=== PATIENT | female | born 1935 | race Caucasian/White ===

== ENCOUNTER → 2016-05-22 | Outpatient (CLI) | payer MEDICARE ==
[2016-05-22 08:42] LABS: BASOPHILS % (AUTO) 1 % (0-2); EOSINOPHILS # (AUTO) 0.2 10^3uL; EOSINOPHILS % (AUTO) 3 % (0-4); LYMPHOCYTES # (AUTO) 1.2 X10^3; MEAN CORPUSCULAR HEMOGLOBIN 28.7 PG (26.0-34.0); MEAN CORPUSCULAR HGB CONC 34.5 g/dL (31.0-37.0); MEAN CORPUSCULAR VOLUME 83 FL (80-100); MEAN PLATELET VOLUME 9.4 FL (6.0-9.5); MONOCYTES # (AUTO) 0.5 X10^3; MONOCYTES % (AUTO) 9 % (3-11); NEUTROPHILS # (AUTO) 3.5 X10^3; NEUTROPHILS % (AUTO) 64 % (51-67); PLATELET COUNT 241 10^3uL (150-450); WHITE BLOOD COUNT 5.44 10^3uL (4.0-11.0)
== END ==
LOC: LAB 08:23
PROVIDERS: ATTEND Internal Medicine
DX: D64.89 Other specified anemias (principal); E78.4 Other hyperlipidemia; E11.9 Type 2 diabetes mellitus without complications
CPT/HCPCS: 36415; 80061; 83036; 85025

== ENCOUNTER 2016-07-25 16:59 | Inpatient (IN) | payer MEDICARE ==
[~2016-07-25] VITALS: Ht 162.6 cm; Wt 115.5 kg
[~2016-07-25 16:59] MED LIST changes: -CHOL10002 PO; -CPR500T PO; -CYAN500T44 PO; -MULT-1047 PO; -RANI150T15 PO; -UBID100T7 PO
--- NOTE | 2016-07-25 17:05 | NUR ---
Pt admitted to 303 via w/c accompanied by Jaime Valdez Machine Shorthand Reporter. Skin warm, dry, intact. Resprs nonlabored, even on RA. Pt rates R flank pain 8/10 with activity. See admission database for assessment info.
--- OUTSIDE RECORDS SUMMARY | 2016-07-25 17:05 | XMS REPORT | Continuity of Care Document ---
Author Author [facility] Address Unknown Phone Unavailable Allergies Active Description Code Type Severity Reaction Onset Reported/Identified Relationship to Patient Clinical Status Yes No Known Drug Allergies [id number] Drug Allergy Unknown N/ A 04/14/2013 Yes terazosin [id number] Drug Allergy Mild N/A 05/31/2015 Medications Problems Date Dx Coded Attending Type Code Diagnosis Diagnosed By 06/22/2014 Ot 611.72 06/22/2014 Ot V72.31 06/22/2014 Ot V76.12 06/22/2014 SARITHA SOSA MD Ot 786.09 06/22/2014 SARITHA SOSA MD Ot 780.60 06/22/2014 SARITHA SOSA MD Ot 780.60 06/22/2014 SARITHA SOSA MD Ot 786.09 06/22/2014 SARITHA SOSA MD Ot 719.46 06/22/2014 SARITHA SOSA MD Ot 250.00 06/22/2014 SARITHA SOSA MD Ot 272.4 06/22/2014 SARITHA SOSA MD Ot 401.1 06/22/2014 SARITHA SOSA MD Ot 427.69 06/22/2014 SARITHA SOSA MD Ot 250.00 06/22/2014 Ot 250.00 06/22/2014 Ot 401.9 06/22/2014 Ot 715.96 06/22/2014 SARITHA SOSA MD Ot V49.81 06/22/2014 SARITHA SOSA MD Ot 782.3 06/22/2014 Ot 401.9 06/22/2014 Ot V72.63 06/22/2014 Ot V72.83 06/27/2014 Ot 401.9 06/27/2014 Ot V72.63 06/27/2014 Ot V72.83 06/30/2014 Ot 401.9 06/30/2014 Ot V72.63 06/30/2014 Ot V72.83 07/13/2014 SHEILA THOMPSON, SARITHA D Ot 276.8 07/13/2014 SHEILA THOMPSON, SARITHA D Ot 401.9 08/03/2014 SHEILA THOMPSON, SARITHA D Ot 250.00 08/03/2014 SHEILA THOMPSON, SARITHA D Ot 401.9 08/03/2014 SHEILA THOMPSON, SARITHA D Ot 780.79 08/03/2014 SHEILA THOMPSON, SARITHA D Ot 787.02 08/31/2014 SHEILA THOMPSON, SARITHA D Ot 250.00 08/31/2014 SHEILA THOMPSON, SARITHA D Ot 401.9 08/31/2014 SHEILA THOMPSON, SARITHA D Ot 459.81 08/31/2014 SHEILA THOMPSON, SARITHA D Ot V43.65 10/19/2014 SHEILA THOMPSON, SARITHA D Ot 250.00 10/19/2014 SHEILA THOMPSON, SARITHA D Ot 272.4 10/19/2014 SHEILA THOMPSON, SARITHA D Ot 401.9 10/19/2014 SHEILA THOMPSON, SARITHA D Ot 562.10 10/19/2014 SHEILA THOMPSON, SARITHA D Ot 789.04 10/19/2014 SHEILA THOMPSON, SARITHA D Ot V70.0 11/01/2014 SHEILA THOMPSON, SARITHA D Ot 250.00 11/01/2014 SHEILA THOMPSON, SARITHA D Ot 272.4 11/01/2014 SHEILA THOMPSON, SARITHA D Ot 401.9 11/01/2014 SHEILA THOMPSON, SARITHA D Ot 562.10 11/01/2014 SHEILA THOMPSON, SARITHA D Ot 789.04 11/01/2014 SHEILA THOMPSON, SARITHA D Ot V70.0 03/16/2015 SHEILA THOMPSON, SARITHA D Ot D72.829 03/16/2015 SHEILA THOMPSON, SARITHA D Ot E11.9 03/20/2015 SHEILA THOMPSON, SARITHA D Ot D72.829 03/20/2015 SHEILA THOMPSON, SARITHA D Ot E11.9 05/29/2015 SHEILA THOMPSON, SARITHA Carrillo Ot I10 05/31/2015 KATELYN THOMPSON, TC Cool Ot K57.30 05/31/2015 TC ZEPEDA MD Ot Z12.11 05/31/2015 KATELYN THOMPSON, TC Cool Ot Z80.0 06/27/2015 KATELYN THOMPSON, TC G Ot K57.30 06/27/2015 KATELYN THOMPSON, TC Travon Ot Z12.11 06/27/2015 TC ZEPEDA MD Travon Ot Z80.0 11/14/2015 SARITHA SOSA MD Ot E11.9 TYPE 2 DIABETES MELLITUS WITHOUT COMPLIC 11/14/2015 SARITHA SOSA MD Ot E11.9 TYPE 2 DIABETES MELLITUS WITHOUT COMPLIC 11/17/2015 SARITHA SOSA MD Ot E11.9 TYPE 2 DIABETES MELLITUS WITHOUT COMPLIC 11/17/2015 SARITHA SOSA MD Ot E78.5 HYPERLIPIDEMIA, UNSPECIFIED 11/17/2015 SARITHA SOSA MD Ot I10 ESSENTIAL (PRIMARY) HYPERTENSION 11/17/2015 SARITHA SOSA MD Ot Z00.00 ENCNTR FOR GENERAL ADULT MEDICAL EXAM W 11/21/2015 SARITHA SOSA MD Ot E11.9 TYPE 2 DIABETES MELLITUS WITHOUT COMPLIC 11/21/2015 SARITHA SOSA MD Ot E78.5 HYPERLIPIDEMIA, UNSPECIFIED 11/21/2015 SARITHA SOSA MD Ot I10 ESSENTIAL (PRIMARY) HYPERTENSION 11/21/2015 SARITHA SOSA MD Ot Z00.00 ENCNTR FOR GENERAL ADULT MEDICAL EXAM W 11/28/2015 SARITHA SOSA MD Ot E11.9 TYPE 2 DIABETES MELLITUS WITHOUT COMPLIC 11/28/2015 SARITHA SOSA MD Ot E78.5 HYPERLIPIDEMIA, UNSPECIFIED 11/28/2015 SARITHA SOSA MD Ot I10 ESSENTIAL (PRIMARY) HYPERTENSION 11/28/2015 SARITHA SOSA MD Ot Z00.00 ENCNTR FOR GENERAL ADULT MEDICAL EXAM W 12/11/2015 SARITHA SOSA MD Ot E11.9 TYPE 2 DIABETES MELLITUS WITHOUT COMPLIC 12/11/2015 SARITHA SOSA MD Ot E78.5 HYPERLIPIDEMIA, UNSPECIFIED 12/11/2015 SARITHA SOSA MD Ot I10 ESSENTIAL (PRIMARY) HYPERTENSION 12/11/2015 SARITHA SOSA MD Ot Z00.00 ENCNTR FOR GENERAL ADULT MEDICAL EXAM W 03/21/2016 SARITHA SOSA MD Ot I10 ESSENTIAL (PRIMARY) HYPERTENSION 05/22/2016 SARITHA SOSA MD, Ot D64.89 OTHER SPECIFIED ANEMIAS 05/22/2016 SARITHA SOSA MD, Ot E11.9 TYPE 2 DIABETES MELLITUS WITHOUT COMPLIC 05/22/2016 SARITHA SOSA MD Ot E78.4 OTHER HYPERLIPIDEMIA 05/22/2016 SARITHA SOSA MD, Ot D64.89 OTHER SPECIFIED ANEMIAS 05/22/2016 SARITHA SOSA MD, Ot E11.9 TYPE 2 DIABETES MELLITUS WITHOUT COMPLIC 05/22/2016 SARITHA SOSA MD Ot E78.4 OTHER HYPERLIPIDEMIA 05/22/2016 SARITHA SOSA MD, Ot D64.89 OTHER SPECIFIED ANEMIAS 05/22/2016 SARITHA SOSA MD, Ot E11.9 TYPE 2 DIABETES MELLITUS WITHOUT COMPLIC 05/22/2016 SARITHA SOSA MD, Ot E78.4 OTHER HYPERLIPIDEMIA 05/22/2016 SARITHA SOSA MD, Ot D64.89 OTHER SPECIFIED ANEMIAS 05/22/2016 SARITHA SOSA MD, Ot E11.9 TYPE 2 DIABETES MELLITUS WITHOUT COMPLIC 05/22/2016 SARITHA SOSA MD Ot E78.4 OTHER HYPERLIPIDEMIA 05/27/2016 SARITHA SOSA MD, Ot D64.89 OTHER SPECIFIED ANEMIAS 05/27/2016 SARITHA SOSA MD, Ot E11.9 TYPE 2 DIABETES MELLITUS WITHOUT COMPLIC 05/27/2016 SARITHA SOSA MD Ot E78.4 OTHER HYPERLIPIDEMIA 06/13/2016 SARITHA SOSA MD Ot D64.89 OTHER SPECIFIED ANEMIAS 06/13/2016 SARITHA SOSA MD, Ot E11.9 TYPE 2 DIABETES MELLITUS WITHOUT COMPLIC 06/13/2016 SARITHA SOSA MD Ot E78.4 OTHER HYPERLIPIDEMIA Procedures Results Test Result Range Complete blood count (CBC) with automated white blood cell (WBC) differential - 11/14/15 08:43 Blood automated leukocyte count 5.13 4.0 -11.0 Erythrocytes 4.29 4.00-5.00 12.0-16.0;g/dL 11.7 12.0-15.5 Hematocrit 35.20 35.00-45.00 Automated erythrocyte mean corpuscular volume 82 80-100 Mean corpuscular hemoglobin (MCH) determination 27.3 26.0-34.0 Automated erythrocyte mean corpuscular hemoglobin concentration measurement ( mass/volume) 33.2 31.0-37.0 Erythrocyte distribution width 13.6 11.8 -15.6 Automated blood platelet count 214 150- 450 Automated blood platelet mean volume measurement 9.3 6.0-9.5 Automated neutrophil percentage 63 51- 67 Lymphocytes/100 leukocytes 22 20-46 Automated monocyte percentage 10 3-11 Eosinophil count auto 4 0-4 Automated basophil percentage 1 0-2 Automated blood neutrophil count 3.3 Blood lymphocytes count (number/volume) 1.1 Automated blood monocyte count 0.5 Blood absolute eosinophil count 0.2 Basophils 0.0 HEMOGLOBIN A1C* - 11/14/15 08:43 HEMOGLOBIN A1C* 7.3 4.0-6.0 Comprehensive metabolic panel - 11/14/15 08:43 Sodium measurement 159 70-110 Carbon dioxide measurement 31 22-29 Serum or plasma anion gap 14.9 3-15 BLOOD UREA NITROGEN 17 7-18 CREATININE SERUM 0.86 0.6-1.2 Brucella species antibody panel (IgG, IgM) 20 10-20 Estimated glomerular filtration rate (GFR) 77.0 Estimated glomerular filtration rate (GFR) non- 63.7 OSMOLALITY,CALCULATED 276 280-300 CALCIUM 9.7 8.8-10.8 Calculated ionized calcium measurement 4.6 3.8-4.6 BILIRUBIN,TOTAL 0.5 0.1-1.0 Serum or plasma alkaline phosphatase measurement 88 38-126 ASPARTATE AMINO TRANSFERASE 26 15-37 ALANINE AMINOTRANSFERASE 43 30-65 Serum or plasma total protein measurement 6.2 6.4-8.5 Serum or plasma albumin measurement 3.9 3.4-5.0 Serum or plasma albumin/globulin mass ratio 1.695 1.1-1.8 General health panel - 11/14/15 08:43 Total cell count 2.18 0.46-4.68 LIPID PANEL - 11/14/15 08:43 Cholesterol 154 50-200 HDL Cholesterol 49 40-60 Triglycerides 176 10-150 LDL CHOLESTEROL 70 50-130 VLDL Cholesterol, calc 35 4.00-40.00 Cholesterol.total/Cholesterol.in HDL 3.1 0.0-5.0 Urine microalbumin measurement by detection limit <=20 mg/l (mass/volume) - 08:43 Urine microalbumin measurement by detection limit <=20 mg/l (mass/volume) < 0.0-1.7 Complete blood count (CBC) with automated white blood cell (WBC) differential - 05/22/16 08:30 Blood automated leukocyte count 5.44 4.0 -11.0 Erythrocytes 4.36 4.00-5.00 12.0-16.0;g/dL 12.5 12.0-15.5 Hematocrit 36.20 35.00-45.00 Automated erythrocyte mean corpuscular volume 83 80-100 Mean corpuscular hemoglobin (MCH) determination 28.7 26.0-34.0 Automated erythrocyte mean corpuscular hemoglobin concentration measurement ( mass/volume) 34.5 31.0-37.0 Erythrocyte distribution width 13.0 11.8 -15.6 Automated blood platelet count 241 150- 450 Automated blood platelet mean volume measurement 9.4 6.0-9.5 Automated neutrophil percentage 64 51- 67 Lymphocytes/100 leukocytes 23 20-46 Automated monocyte percentage 9 3-11 Eosinophil count auto 3 0-4 Automated basophil percentage 1 0-2 Automated blood neutrophil count 3.5 Blood lymphocytes count (number/volume) 1.2 Automated blood monocyte count 0.5 Blood absolute eosinophil count 0.2 Basophils 0.0 LIPID PANEL - 05/22/16 08:30 Cholesterol 146 50-200 HDL Cholesterol 42 40-60 Triglycerides 168 10-150 LDL CHOLESTEROL 70 50-130 VLDL Cholesterol, calc 34 4.00-40.00 Cholesterol.total/Cholesterol.in HDL 3.5 0.0-5.0 HEMOGLOBIN A1C* - 05/22/16 08:30 HEMOGLOBIN A1C* 7.9 4.0-6.0 HEMOGLOBIN A1C* - 07/25/16 12:20 HEMOGLOBIN A1C* 7.9 4.0-6.0 Comprehensive metabolic panel - 07/25/16 12:20 Sodium measurement 171 70-110 CARBON DIOXIDE 26 22-29 Serum or plasma anion gap 16.5 3-15 BLOOD UREA NITROGEN 25 7-18 CREATININE SERUM 1.30 0.6-1.2 Brucella species antibody panel (IgG, IgM) 19 10-20 Estimated glomerular filtration rate (GFR) 47.8 Estimated glomerular filtration rate (GFR) non- 39.5 OSMOLALITY,CALCULATED 270 280-300 CALCIUM 9.6 8.8-10.8 Calculated ionized calcium measurement 4.5 3.8-4.6 BILIRUBIN,TOTAL 0.5 0.1-1.0 Serum or plasma alkaline phosphatase measurement 104 38-126 ASPARTATE AMINO TRANSFERASE 19 15-37 ALANINE AMINOTRANSFERASE 40 30-65 Serum or plasma total protein measurement 6.5 6.4-8.5 Serum or plasma albumin measurement 3.7 3.4-5.0 Serum or plasma albumin/globulin mass ratio 1.321 1.1-1.8 General health panel - 07/25/16 12:20 Total cell count 1.55 0.46-4.68 C REACTIVE PROTEIN* - 07/25/16 12:20 C REACTIVE PROTEIN* 6.10 0.0-0.9 LIPID PANEL - 07/25/16 12:20 Cholesterol 147 50-200 HDL Cholesterol 50 40-60 Triglycerides 166 10-150 LDL CHOLESTEROL 64 50-130 VLDL Cholesterol, calc 33 4.00-40.00 Cholesterol.total/Cholesterol.in HDL 2.9 0.0-5.0 Complete blood count (CBC) with automated white blood cell (WBC) differential - 07/25/16 12:20 Blood automated leukocyte count 9.43 4.0 -11.0 Erythrocytes 4.39 4.00-5.00 12.0-16.0;g/dL 12.3 12.0-15.5 Hematocrit 36.50 35.00-45.00 Automated erythrocyte mean corpuscular volume 83 80-100 Mean corpuscular hemoglobin (MCH) determination 28.0 26.0-34.0 Automated erythrocyte mean corpuscular hemoglobin concentration measurement ( mass/volume) 33.7 31.0-37.0 Erythrocyte distribution width 13.2 11.8 -15.6 Automated blood platelet count 232 150- 450 Automated blood platelet mean volume measurement 9.6 6.0-9.5 Automated neutrophil percentage 78 51- 67 Lymphocytes/100 leukocytes 12 20-46 Automated monocyte percentage 9 3-11 Eosinophil count auto 1 0-4 Automated basophil percentage 0 0-2 Automated blood neutrophil count 7.3 Blood lymphocytes count (number/volume) 1.2 Automated blood monocyte count 0.8 Blood absolute eosinophil count 0.1 Basophils 0.0 Erythrocyte sedimentation rate - 07/25/16 12:20 Erythrocyte sedimentation rate 34 0-23 UA CULTURE IF INDICATED* - 07/25/16 12:30 COLLECTION METHOD CLEAN CATCH Color of urine by auto Yellow Urine appearance determination Slightly Cloudy Urine pH measurement by automated test strip 5.5 5.0 - 8.0 Specific gravity of urine by automated test strip 1.010 1.005-1.030 Urine protein measurement by test strip (mass/volume) Trace Negative Urine glucose detection by automated test strip Negative Negative Urine erythrocytes count by automated test strip (number/volume) 1+ Negative Urine ketones detection by automated test strip Negative Negative Urine nitrite detection by test strip Negative Negative Urine total bilirubin detection by automated test strip Negative Negative Urine urobilinogen measurement by automated test strip (mass/volume) 0.2 0.2-1.0 Urine leukocyte esterase detection by dipstick 3+ Negative Microscopic examination of urine - 07/25/16 12:30 Urine volume measurement 12 mL Urine erythrocytes detection by automated method 5-10 Automated urine sediment leukocyte count by microscopy (number/high power field ) > Bacteria 1+ SQUAMOUS EPITHELIAL CELL,UR 5-10 Encounters ACCT No. Visit Date/Time Discharge Status Pt. Type Provider Facility Loc./Unit Complaint [id number] 05/31/2015 08:02:00 2015 13:25:00 DIS Outpatient KATELYN THOMPSON, [facility] [id number] 02/22/2015 16:46:00 2014 23:59:59 CLS Outpatient SHEILA THOMPSON [facility] LAB [id number] 10/09/2014 08:44:00 2014 23:59:59 CLS Outpatient SHEILA THOMPSON [facility] LAB [id number] 08/09/2014 09:07:00 2014 23:59:59 CLS Outpatient SHEILA THOMPSON [facility] LAB [id number] 07/08/2014 11:35:00 2014 23:59:59 CLS Outpatient SHEILA THOMPSON [facility] LAB [id number] 06/22/2014 09:05:00 2014 23:59:59 CLS Outpatient SHEILA THOMPSON [facility] LAB [id number] 05/13/2014 08:01:00 2014 23:59:59 CLS Outpatient SHEILA THOMPSON, [facility] LAB [id number] 05/13/2014 07:59:00 2014 23:59:59 CLS Outpatient Bhaskar THOMPSON, [facility] RAD [id number] 02/02/2014 08:06:00 2013 23:59:59 CLS Outpatient SHEILA THOMPSON, [facility] RAD [id number] 09/09/2013 13:09:00 2013 23:59:59 CLS Outpatient SHEILA THOMPSON, [facility] LAB [id number] 09/06/2013 08:05:00 2013 23:59:59 CLS Outpatient SHEILA THOMPSON, [facility] LAB [id number] 06/25/2013 09:49:00 2013 23:59:59 CLS Outpatient [id number] 04/14/2013 12:44:00 2013 23:59:59 CLS Outpatient SHEILA THOMPSON, [facility] [id number] 02/23/2013 08:53:00 2012 23:59:59 CLS Outpatient SHEILA THOMPSON, [facility] [id number] 01/13/2013 15:32:00 2012 23:59:59 CLS Outpatient SHEILA THOMPSON, [facility] LAB [id number] 01/07/2013 12:57:00 2012 23:59:59 CLS Outpatient SHEILA THOMPSON, [facility] LAB [id number] 01/05/2013 14:30:00 2012 23:59:59 CLS Outpatient SHEILA THOMPSON, [facility] RAD [id number] 07/25/2016 13:18:00 Document Registration [id number] 05/22/2016 08:23:00 ACT Outpatient SHEILA THOMPSON, [facility] LAB [id number] 11/14/2015 08:35:00 ACT Outpatient SHEILA THOMPSON, [facility] LAB [id number] 05/07/2015 07:50:00 ACT Outpatient SHEILA THOMPSON, [facility] [id number] 06/22/2014 09:00:00 Document Registration [id number] 06/03/2014 10:33:00 Document Registration [id number] 12/14/2013 09:25:00 Document Registration [id number] 05/27/2012 14:03:00 Document Registration [id number] 10/09/2011 08:34:00 Document Registration
[2016-07-25 17:41] VITALS: BP 176/75
[2016-07-25] MEDS ORDERED: DEXTROSE 50% 25 GM/50 ML SYRINGE IV PRN (17:55)
[2016-07-25] MEDS ORDERED: DEXTROSE ORAL GEL (GLUTOSE 40%) 15 GM TUBE PO PRN (17:55)
[2016-07-25] MEDS ORDERED: MAG HYDROX/AL HYDROX/SIMETH 200-200-20/5 ML (MAG-AL PLUS) 30 ML UDC PO PRN (17:55)
[2016-07-25] MEDS ORDERED: DOCUSATE SODIUM 100 MG (COLACE) CAP PO PRN (17:55)
[2016-07-25] MEDS ORDERED: PROMETHAZINE HCL INJ 12.5 MG in SODIUM CHLORIDE 25 ML IV PRN (17:55)
[2016-07-25] MEDS ORDERED: GLUCAGON EMERGENCY 1 MG/KIT IM PRN (17:55)
[2016-07-25] MEDS ORDERED: ONDANSETRON 4 MG (ZOFRAN) ORAL DISSOLVE TAB PO PRN (17:55)
[2016-07-25] MEDS ORDERED: POLYETHYLENE GLYCOL 17 GM (MIRALAX) PACKET PO PRN (17:55)
[2016-07-25] MEDS ORDERED: CALCIUM CARBONATE CHEWABLE 300 MG (TUMS) TABLET PO PRN (17:55)
[2016-07-25] MEDS ORDERED: MAGNESIUM HYDROXIDE 80MG/ML (MILK OF MAGNESIA) 30 ML UDC PO PRN (17:55)
[2016-07-25] MEDS ORDERED: CYCLOBENZAPRINE 10 MG (FLEXERIL) TAB PO PRN (17:55)
[2016-07-25] MEDS ORDERED: CYAN500T44 PO (18:03)
[2016-07-25] MEDS ORDERED: RANI150T15 PO (18:03)
[2016-07-25] MEDS ORDERED: CHOL10002 PO (18:03)
[2016-07-25] MEDS ORDERED: METF1000 PO (18:03)
[2016-07-25] MEDS ORDERED: MULT-1047 PO (18:03)
[2016-07-25] MEDS ORDERED: UBID100T7 PO (18:03)
--- NOTE | 2016-07-25 18:04 | NUR ---
Medication history completed; interview by Isabel chapman and medications/doses updated in EMR
[2016-07-25] MEDS ORDERED: NS FLUSH 3 ML PRN IV (18:10)
[2016-07-25 18:35] VITALS: BP 176/75
--- NOTE | 2016-07-25 18:45 | NUR ---
20g in LFA started by Kimberly Carrillo RN. Pt reports it carlson, but it does not appear red or edematous upon flushing. Pt states "that's fine, we'll try it!". Jocelyne melendez. Pt reports feeling chilled, requests to have temperature taken orally. Pt refuses dinner tray. Call light within reach. Denies other needs.
[2016-07-25] MEDS: cefTRIAXone SODIUM 1,000 MG in SODIUM CHLORIDE 50 ML IV SCH (18:57)
--- NOTE | 2016-07-25 19:04 | Diagnostic Imaging Report ---
INDICATION: Sepsis. Comparison with 06/03/2014. FINDINGS: The lungs are well-aerated with no infiltrates. The heart is not enlarged. No hilar adenopathy. No pneumothorax or pleural effusions. IMPRESSION: Normal PA and lateral chest. Dictated by: Dictated on workstation # [id number]
--- NOTE | 2016-07-25 19:35 | NUR ---
Pts temp is 102.3, gave Tylenol 325mg 2 tabs PO for temp.
--- NOTE | 2016-07-25 20:10 | History and Physical (E) ---
History & Physical PCP: Rosendo Vora MD CC: Right flank pain, worse x 5 days. HPI Lisa Ramos is a 80 year old female admitted from home 07/25 for concern of pyelonephritis. She had been having right sided flank pain x 5 days, getting progressively worse. Has back pain chronically but this felt different. Seen in PCP's office today and had CVA tenderness. Reported to PCP that she has been chilling at home at times but no fever reported. In office, UA showed pyuria, bacteria, LE. CRP 6.1. WBC was normal. PCP called patient and instructed her to come to hospital for admission. She drove herself here form home. On arrival, somewhat tired but pleasant, interactive, able to answer questions. Relays history as above. As she is a nurse, she worries of course about feeling septic. No nausea or vomiting but is tired. Feels dehydrated. Having some flank pain that improved with morphine. PMH * Chronic low back pain * Diverticulosis * Diabetes Mellitus Type II * JIN * Dysthymia * Mitral valve prolapse * Hearing loss, left ear * Hemianopia * HLD * Laryngopharyngitis * Lumbar spinal stensois * Obesity * SONAM on CPAP * OA * Ptosis * Venous stasis PSH * Colonoscopy * Right total knee 2015 * Bilateral blepharoplsty * Bilateral cataract * Laparoscopic cholecystectomy * Bilateral shoulder surgery * Vaginal hysterectomy * Appendectomy * Back surgery x 3. * Sinus and nasal surgery ALLERGIES: Please see list at end of report. HOME MEDICATIONS: Please see list at end of report. FH Father had CAD. Mother had cancer. Father also had DM. SH Lives independently in her own home in [place]. 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 No alcohol, tobacco, or drug use. ROS CONSTITUTION: Weigt stable, Has felt chilled. HEENT: No change in vision or hearing. CV: No chest pain PULM: No cough, shortness of breath, difficulty breathing. GI: Flank pain. No nausea or vomiting. : No dysuria. MS: No new muscle or joint aches and pains. NEURO: Generalized but no focal weakness. INTEG: No rashes, lesions, or sores. OBJECTIVE Vital Signs Date Time Temp Pulse Resp B/P Pulse Ox O2 Delivery O2 Flow Rate FiO2 07/25/16 18:35 97.9 101 18 176/75 94 Room air 101 GEN: Tired appearing. Oriented. HEENT: EOMI, clear sclerae, somewhat dry oral mucosa. CV: RRR S1 S2 normal with no murmur LUNGS: CTA B with diminished bases. No R/R/W. ABD: Soft, NT/ND with normal bowel sounds. EXTR: BLE edema. INTEG: No rash. Warm, dry, well-perfused. Not diaphoretic. NEURO: No focal motor neuro deficit. Psychomotor slowing. Weight: 117.6 kg Laboratory Results-14 Days 07/25/16 12:20: Alanine Aminotransferase (ALT/SGPT) 40, Albumin 3.7, Albumin/Globulin Ratio 1.321, Alkaline Phosphatase 104, Anion Gap 16.5H, Aspartate Amino Transf (AST/ SGOT) 19, BUN/Creatinine Ratio 19, Basophils # (Auto) 0.0, Basophils (%) (Auto) 0, Blood Urea Nitrogen 25H, C-Reactive Protein 6.10H, Calcium Level 9.6, Calcium /Ionized Calcium Ratio 4.5, Calculated Osmolality 270L, Carbon Dioxide Level 26 , Chloride Level 97L, Cholesterol Level 147, Cholesterol/HDL Ratio 2.9, Creatinine 1.30#H, Eosinophils # (Auto) 0.1, Eosinophils (%) (Auto) 1, Erythrocyte Sedimentation Rate 34H, Estimat Glomerular Filtration Rate 47.8, Estimated GFR (Non- 39.5, Glucose Level 171H, HDL Cholesterol 50 , Hematocrit 36.50, Hemoglobin 12.3, Hemoglobin A1c 7.9H, LDL Cholesterol, Calculated 64, Lymphocytes # (Auto) 1.2, Lymphocytes (%) (Auto) 12L, Mean Corpuscular Hemoglobin 28.0, Mean Corpuscular Hemoglobin Concent 33.7, Mean Corpuscular Volume 83, Mean Platelet Volume 9.6H, Monocytes # (Auto) 0.8, Monocytes (%) (Auto) 9, Neutrophils # (Auto) 7.3, Neutrophils (%) (Auto) 78H, Platelet Count 232, Potassium Level 4.1, Red Blood Count 4.39, Red Cell Distribution Width 13.2, Sodium Level 135, Thyroid Stimulating Hormone (TSH) 1.55, Total Bilirubin 0.5, Total Protein 6.5, Triglycerides Level 166H, VLDL Cholesterol, Calculated 33, White Blood Count 9.43 07/25/16 12:30: Urine Bacteria 1+, Urine Bilirubin Negative, Urine Blood 1+H, Urine Clarity Slightly cloudy, Urine Collection Type Clean catch, Urine Color Yellow, Urine Glucose (UA) Negative, Urine Ketones Negative, Urine Leukocyte Esterase 3+H, Urine Microscopic RBC 5-10H, Urine Nitrite Negative, Urine Protein TraceH, Urine Random Microalbumin 6.6H, Urine Specific Mandan 1.010, Urine Squamous Epithelial Cells 5-10, Urine Urobilinogen 0.2, Urine WBC >100H, Urine pH 5.5, Volume Urine Centrifuged 12 ml MICRO 07/25 Blood culture PENDING 07/25 Urine culture PENDING IMAGING 07/25/16 CHEST PA/LAT (2 VIEW)* INDICATION: Sepsis. Comparison with 06/03/2014. FINDINGS: The lungs are well-aerated with no infiltrates. The heart is not enlarged. No hilar adenopathy. No pneumothorax or pleural effusions. IMPRESSION: Normal PA and lateral chest. ASSESSMENT Lisa Ramos is a 80 year old female admitted from home 07/25 after being seen in clinic earlier in the day with malaise, flank pain. Office labs and clinical presentation were consistent with pyelonephritis. She appeared ill on admit though did not meet SIRS/sepsis criteria. PLAN * Pyelonephritis: Urine and blood cultures pending. Ceftriaxone. * Flank Pain: Acetaminophen, morphine. * Dehydration: NS bolus. 1 L maintenance. * Nausea: Ondansetron, promethazine. * F/E/N: Diabetic diet. IVF as above. Peripheral IV. * Prophylaxis: Enoxaparin * Code Status: DNR. Patient requested this on admit. * Dispo: Observation pending utilization review. Likely to need 2-3 day stay. CHRONIC ISSUES * HTN: Losartan, chlorthalidone * Diabetes Mellitus Type II: Metformin, sliding scale. * GERD: Pantoprazole * HLD: Simvastatin * OA: Acetaminophen * Constipation: Bowel regimen Allergies/Home Medications Allergies: Coded Allergies: terazosin (Verified Allergy, Mild, 05/31/15) leg cramping Reported Home Medications Scheduled Aspirin (Aspirin) 81 MG PO DAILY (Reported) Chlorthalidone (Chlorthalidone) 25 MG PO DAILY (Reported) Cholecalciferol (Vitamin D3) (Vitamin D3) 1,000 UNIT PO DAILY (Reported) Cyanocobalamin (Vitamin B-12) (B-12) 500 MCG PO DAILY (Reported) Losartan Potassium (Losartan Potassium) 100 MG PO DAILY (Reported) Metformin HCl (Metformin HCl) 500 MG PO BID (Reported) Multivit-Min/Iron Fum/Folic AC (Fbghv-Dwkrvby-Pkgmspaw Tablet) 1 EACH PO DAILY ( Reported) Pantoprazole Sodium (Pantoprazole Sodium) 40 MG PO DAILY (Reported) Ranitidine HCl (Zantac) 150 MG PO DAILY (Reported) Simvastatin (Simvastatin) 80 MG PO DAILY (Reported) Ubidecarenone (Coenzyme Q10) 100 MG PO DAILY (Reported) Discontinued Medications Betamethasone Valerate (Betamethasone Valerate 0.1% Cream) 15 GM TOP BID ( Reported) Discontinued Reason: No longer required Metformin HCl (Metformin HCl) 2,000 MG PO BID (Reported) Discontinued Reason: Dose changed Copies to: End of Report . TONG UNGER MD Jul 25, 2016 20:10
[2016-07-25] MEDS: morphine INJ 4 MG/ML 1 ML SYRINGE IV PRN (20:21)
[2016-07-25] MEDS: ACETAMINOPHEN 325 MG TAB (TYLENOL) PO PRN (20:21)
--- NOTE | 2016-07-25 20:21 | NUR ---
Pt complains of pain to right flank, rates 8/10 gave Morphine 4mg SIVP for discomfort. Rechecked temp, 100.1 at this time. Will continue to monitor.
[2016-07-25 20:28] VITALS: BP 160/73
[2016-07-25] MEDS ORDERED: metFORMIN 1000 MG (GLUCOPHAGE) TABLET PO ONE (21:18)
[2016-07-26 00:10] VITALS: BP 115/41
[2016-07-26] MEDS: morphine INJ 4 MG/ML 1 ML SYRINGE IV PRN ×3 (03:51→23:37)
--- NOTE | 2016-07-26 03:51 | NUR ---
Pt is up to restroom, reports having pain to right flank again, rates 8/10, gave Morphine 4mg SIVP for discomfort. Will continue to monitor.
[2016-07-26 04:22] VITALS: BP 144/53
[2016-07-26 06:11] LABS: BASOPHILS % (AUTO) 0 % (0-2); EOSINOPHILS % (AUTO) 0 % (0-4); LYMPHOCYTES # (AUTO) 0.8 X10^3; MEAN CORPUSCULAR HEMOGLOBIN 27.8 PG (26.0-34.0); MEAN CORPUSCULAR HGB CONC 33.5 g/dL (31.0-37.0); MEAN CORPUSCULAR VOLUME 83 FL (80-100); MEAN PLATELET VOLUME 9.6 FL (6.0-9.5); MONOCYTES # (AUTO) 1.1 X10^3; MONOCYTES % (AUTO) 10 % (3-11); NEUTROPHILS # (AUTO) 9.2 X10^3; NEUTROPHILS % (AUTO) 82 % (51-67); PLATELET COUNT 195 10^3uL (150-450); WHITE BLOOD COUNT 11.25 10^3uL (4.0-11.0)
[2016-07-26] MEDS: PANTOPRAZOLE 40 MG (PROTONIX) TAB PO SCH (06:20)
[2016-07-26 06:21] LABS: ALBUMIN 3.4 g/dL (3.4-5.0); ANION GAP 12.3 MEQ/L (3-15)
--- NOTE | 2016-07-26 07:59 | NUR ---
Pt ambulates to bathroom without difficulty- has an altered gait, but this is her baseline. She requests to sit on edge of bed for breakfast. Rates Right flank pain 3/10- denies need for pain at this time. Temp is 99.3 this AM- will give Tylenol with her morning meds at her request. IVF infusing- will SL after current bag per orders. Call light within reach, calls appropriately. WIll cont to monitor
[2016-07-26 08:19] VITALS: BP 134/58
[2016-07-26] MEDS: COENZYME Q10 100 MG CAPSULE PO SCH (08:31)
[2016-07-26] MEDS: CHLORTHALIDONE 50 MG PO SCH (08:33)
[2016-07-26] MEDS: ACETAMINOPHEN 325 MG TAB (TYLENOL) PO PRN ×2 (08:33→23:41)
[2016-07-26] MEDS: CHOLECALCIFEROL 1000 INT UNITS (VITAMIN D3) TABLET PO SCH (08:33)
[2016-07-26] MEDS: metFORMIN 500 MG (GLUCOPHAGE) TABLET PO SCH ×2 (08:34→17:43)
[2016-07-26] MEDS: MULTIVITAMIN W/MINERALS (THERAGRAN M) TABLET PO SCH (08:34)
[2016-07-26] MEDS: LOSARTAN 100 MG (COZAAR) TABLET PO SCH (08:34)
[2016-07-26] MEDS: ASPIRIN 81 MG CHEW (LOW-DOSE) PO SCH (08:34)
[2016-07-26] MEDS: CYANOCOBALAMIN 1000 MCG (VITAMIN B-12) TABLET PO SCH (08:34)
--- NOTE | 2016-07-26 08:35 | NUR ---
NUTRITION ASSESSMENT Level 1 Patient: Lisa Ramos Age/Sex: 80/F Date Screened: 07-26-16 Weight: 257.1#/116.9 kg Height: 64 inches Primary Diagnosis: pyelonephritis Diet Order: medium diabetic Relevant labs: glucose 148 Food allergies: N Nutrition Assessment Criteria Age over 80: N Body Mass Index (BMI) under 19: N Admission Screening Indicates Risk? N Moderate/High Risk Diagnosis: 3 points TPN or PPN: N NPO or clear liquid diet: N Serum Glucose <70 or >180: N Hgb A1c >6.7: N/A Total: 3 points Risk Screen: __ Patient at low nutritional risk based on available data; reevaluate in 5-7 days _X_ Patient at moderate nutritional risk based on available data; reevaluate in 3-5 days __ Patient at high nutritional risk; complete Nutrition Assessment within 48 hours of admission. Comments: No weight loss (last documented weight 246# one year ago); c/o some nausea associated with pyelonephritis. Medium diabetic diet is appropriate; will reassess as documented above.
[2016-07-26] MEDS: NS FLUSH 3 ML DAILY IV SCH (09:00)
--- NOTE | 2016-07-26 09:05 | NUR ---
SL at this time- Went to shower. Tylenol 650mg PO given at 0830 for temp
--- NOTE | 2016-07-26 10:25 | Progress Note (E) ---
Progress Note SUBJECTIVE Tmax since admit 102.9. Fever improving with acetaminophen. Urine growing > 100, 000 cfu/ml gram negative bacilli. On exam, she reports feeling a bit weak yet but somewhat better since admit. Daughter present. Updated both on findings, plan of care. OBJECTIVE Vital Signs Date Time Temp Pulse Resp B/P Pulse Ox O2 Delivery O2 Flow Rate FiO2 07/26/16 08:19 99.3 85 18 134/58 93 07/26/16 04:22 Room air I & O 07/25/16 07/26/16 Cumulative From/Thru 19:00 07:00 07/25/16 17:19 - 07/26/16 06:04 Intake Total 2404 ml 2404 ml Output Total 2600 ml 2600 ml Balance -196 ml -196 ml GEN: Tired appearing. More alert. HEENT: EOMI, clear sclerae, somewhat dry oral mucosa. CV: RRR S1 S2 normal with no murmur LUNGS: CTA B with diminished bases. No R/R/W. ABD: Soft, NT/ND with normal bowel sounds. EXTR: BLE edema. INTEG: No rash. Warm, dry, well-perfused. Not diaphoretic. NEURO: No focal motor neuro deficit. Psychomotor slowing. Lab-Past 14 Days, 35 Results 07/25/16 18:12: Acinetobacter baumannii (PCR) Negative, Antimicrobial Susceptibility , Edna albicans (PCR) Negative, Edna glabrata (PCR) Negative, Edna krusei (PCR) Negative, Edna parapsilosis (PCR) Negative, Edna tropicalis ( PCR) Negative, Enterobacter cloacae complex (PCR) Negative, Enterobacteriaceae species (PCR) Positive*A, Enterococcus species (PCR) Negative, Escherichia coli (PCR) Positive*A, Group B Streptococcus (PCR) Negative, Haemophilis influenzae ( PCR) Negative, KPC-Carbapenem Resistance Gene Negative, Klebsiella oxytoca (PCR ) Negative, Klebsiella pneumoniae (PCR) Negative, Listeria monocytogenes (PCR) Negative, Neisseria meningitidis (PCR) Negative, Proteus species (PCR) Negative , Pseudomonas aeruginosa (PCR) Negative, Serratia marcescens (PCR) Negative, Staphylococcus aureus (PCR)(LAB) Negative, Staphylococcus species (PCR) Negative , Streptococcus pneumoniae (PCR) Negative, Streptococcus pyogenes (TEM-PCR) Negative, Streptococcus species (PCR) Negative, Yury/B-Vancomycin Resistance Genes , mecA-Methicillin Resistance Gene 07/26/16 05:45: Albumin 3.4, Anion Gap 12.3, Basophils # (Auto) 0.0, Basophils (%) (Auto) 0, Blood Urea Nitrogen 20H, Calcium Level 8.9, Carbon Dioxide Level 28, Chloride Level 101, Creatinine 1.06, Eosinophils # (Auto) 0.0, Eosinophils (%) (Auto) 0, Estimat Glomerular Filtration Rate 60.5, Estimated GFR (Non- 50.0, Glucose Level 148H, Hematocrit 34.90L, Hemoglobin 11.7L, Lymphocytes # ( Auto) 0.8, Lymphocytes (%) (Auto) 8L, Mean Corpuscular Hemoglobin 27.8, Mean Corpuscular Hemoglobin Concent 33.5, Mean Corpuscular Volume 83, Mean Platelet Volume 9.6H, Monocytes # (Auto) 1.1, Monocytes (%) (Auto) 10, Neutrophils # ( Auto) 9.2, Neutrophils (%) (Auto) 82H, Phosphorus Level 3.8, Platelet Count 195 , Potassium Level 3.9, Red Blood Count 4.21, Red Cell Distribution Width 13.4, Sodium Level 137, White Blood Count 11.25H Weight: 117.6 kg Laboratory Results-14 Days 07/25/16 12:20: Alanine Aminotransferase (ALT/SGPT) 40, Albumin 3.7, Albumin/Globulin Ratio 1.321, Alkaline Phosphatase 104, Anion Gap 16.5H, Aspartate Amino Transf (AST/ SGOT) 19, BUN/Creatinine Ratio 19, Basophils # (Auto) 0.0, Basophils (%) (Auto) 0, Blood Urea Nitrogen 25H, C-Reactive Protein 6.10H, Calcium Level 9.6, Calcium /Ionized Calcium Ratio 4.5, Calculated Osmolality 270L, Carbon Dioxide Level 26 , Chloride Level 97L, Cholesterol Level 147, Cholesterol/HDL Ratio 2.9, Creatinine 1.30#H, Eosinophils # (Auto) 0.1, Eosinophils (%) (Auto) 1, Erythrocyte Sedimentation Rate 34H, Estimat Glomerular Filtration Rate 47.8, Estimated GFR (Non- 39.5, Glucose Level 171H, HDL Cholesterol 50 , Hematocrit 36.50, Hemoglobin 12.3, Hemoglobin A1c 7.9H, LDL Cholesterol, Calculated 64, Lymphocytes # (Auto) 1.2, Lymphocytes (%) (Auto) 12L, Mean Corpuscular Hemoglobin 28.0, Mean Corpuscular Hemoglobin Concent 33.7, Mean Corpuscular Volume 83, Mean Platelet Volume 9.6H, Monocytes # (Auto) 0.8, Monocytes (%) (Auto) 9, Neutrophils # (Auto) 7.3, Neutrophils (%) (Auto) 78H, Platelet Count 232, Potassium Level 4.1, Red Blood Count 4.39, Red Cell Distribution Width 13.2, Sodium Level 135, Thyroid Stimulating Hormone (TSH) 1.55, Total Bilirubin 0.5, Total Protein 6.5, Triglycerides Level 166H, VLDL Cholesterol, Calculated 33, White Blood Count 9.43 07/25/16 12:30: Urine Bacteria 1+, Urine Bilirubin Negative, Urine Blood 1+H, Urine Clarity Slightly cloudy, Urine Collection Type Clean catch, Urine Color Yellow, Urine Glucose (UA) Negative, Urine Ketones Negative, Urine Leukocyte Esterase 3+H, Urine Microscopic RBC 5-10H, Urine Nitrite Negative, Urine Protein TraceH, Urine Random Microalbumin 6.6H, Urine Specific [place] 1.010, Urine Squamous Epithelial Cells 5-10, Urine Urobilinogen 0.2, Urine WBC >100H, Urine pH 5.5, Volume Urine Centrifuged 12 ml MICRO 07/25 Blood culture PENDING 07/25 Urine culture >100,000 cfu/ml gram negative bacilli. IMAGING 07/25/16 CHEST PA/LAT (2 VIEW)* INDICATION: Sepsis. Comparison with 06/03/2014. FINDINGS: The lungs are well-aerated with no infiltrates. The heart is not enlarged. No hilar adenopathy. No pneumothorax or pleural effusions. IMPRESSION: Normal PA and lateral chest. ASSESSMENT Lisa Ramos is a 80 year old female admitted from home 07/25 after being seen in clinic earlier in the day with malaise, flank pain. Office labs and clinical presentation were consistent with pyelonephritis. She had fever and tachycardia , meeting SIRS/sepsis criteria. PLAN * SIRS/sepsis: Due to pyelonephritis. * Pyelonephritis: Urine and blood cultures pending. Ceftriaxone. * Flank Pain: Acetaminophen, morphine. * Dehydration: NS bolus. 1 L maintenance. * Nausea: Ondansetron, promethazine. * F/E/N: Diabetic diet. IVF as above. Peripheral IV. * Prophylaxis: Enoxaparin * Code Status: DNR. Patient requested this on admit. * Dispo: Met inpatient criteria from admission. Likely to need 2-3 day stay. CHRONIC ISSUES * HTN: Losartan, chlorthalidone * Diabetes Mellitus Type II: Metformin, sliding scale. * GERD: Pantoprazole * HLD: Simvastatin * OA: Acetaminophen * Constipation: Bowel regimen TONG UNGER MD Jul 26, 2016 10:21
[2016-07-26 12:11] VITALS: BP 116/75
[2016-07-26] MEDS: IBUPROFEN 600 MG (MOTRIN) TAB PO PRN (13:54)
--- NOTE | 2016-07-26 13:58 | NUR ---
Pt calls for pain medicine for c/o generalized body aches and chilling/shivering. Temp is 98.8. Asks for Ibuprofen- Dr. Stone gave VORB for Ibuprofen 600mg PO Q6H prn.
[2016-07-26] MEDS: cefTRIAXone SODIUM 1,000 MG in SODIUM CHLORIDE 50 ML IV SCH (16:59)
--- NOTE | 2016-07-26 17:00 | NUR ---
20g IV to LFA dc'd- too painful to use. New 20g IV started to RFA by Ivette Granger RN. Morphine 2mg IV given for c/o generalized body aches and headache rated 8/10.
[2016-07-26] MEDS ORDERED: cefTRIAXone SODIUM 1,000 MG in SODIUM CHLORIDE 50 ML IV ONE (17:15)
[2016-07-26] MEDS: SIMvastatin 40 MG (ZOCOR) TAB PO SCH (20:37)
[2016-07-26 20:51] VITALS: BP 119/57
[2016-07-26] MEDS: NS FLUSH 10 ML PRN IV (23:36)
[2016-07-27 00:10] VITALS: BP 170/72
[2016-07-27 04:01] VITALS: BP 139/72
[2016-07-27] MEDS: PANTOPRAZOLE 40 MG (PROTONIX) TAB PO SCH (06:18)
--- NOTE | 2016-07-27 06:39 | NUR ---
Rested in bed quietly overnight, Prn at 2337 Tylenol and Morphine for pain and temp per request.
[2016-07-27] MEDS: ACETAMINOPHEN 325 MG TAB (TYLENOL) PO PRN (07:49)
--- NOTE | 2016-07-27 07:50 | NUR ---
Pt c/o of pain, Tylenol 650 mg po given for fever. Assessment completed.
[2016-07-27 08:00] VITALS: BP 143/61
[2016-07-27] MEDS: CHOLECALCIFEROL 1000 INT UNITS (VITAMIN D3) TABLET PO SCH (08:49)
[2016-07-27] MEDS: MULTIVITAMIN W/MINERALS (THERAGRAN M) TABLET PO SCH (08:49)
[2016-07-27] MEDS: CYANOCOBALAMIN 1000 MCG (VITAMIN B-12) TABLET PO SCH (08:50)
[2016-07-27] MEDS: COENZYME Q10 100 MG CAPSULE PO SCH (08:50)
[2016-07-27] MEDS: metFORMIN 500 MG (GLUCOPHAGE) TABLET PO SCH ×2 (08:50→17:16)
[2016-07-27] MEDS: LOSARTAN 100 MG (COZAAR) TABLET PO SCH (08:50)
[2016-07-27] MEDS: ASPIRIN 81 MG CHEW (LOW-DOSE) PO SCH (08:50)
[2016-07-27] MEDS: CHLORTHALIDONE 50 MG PO SCH (08:50)
--- NOTE | 2016-07-27 09:20 | NUR ---
Pt continues to c/o of pain, request morphine. Morphine 2 mg IV given slow push for pain. Pt up to shower and washed her hair.
[2016-07-27] MEDS: morphine INJ 4 MG/ML 1 ML SYRINGE IV PRN ×2 (09:23→20:39)
[2016-07-27] MEDS: NS FLUSH 3 ML DAILY IV SCH (09:24)
--- NOTE | 2016-07-27 10:32 | Progress Note (E) ---
Progress Note SUBJECTIVE Still having fever and still confused at times. Other vitals stable. Urine culture grew E coli sensitive to ceftriaxone. Blood cultures also positive for E coli. Dose of ceftriaxone had been increased yesterday. Still having some flank pain. Remains on room air. Discussed findings, plan of care. OBJECTIVE Vital Signs Date Time Temp Pulse Resp B/P Pulse Ox O2 Delivery O2 Flow Rate FiO2 07/27/16 08:00 101.8 97 20 143/61 95 Room air I & O 07/26/16 07/27/16 Cumulative From/Thru 19:00 07:00 07/25/16 17:19 - 07/27/16 05:48 Intake Total 2219 ml 990 ml 5613 ml Output Total 3200 ml 1400 ml 7200 ml Balance -981 ml -410 ml -1587 ml GEN: Tired appearing. More alert at present but has had some periods of confusion. HEENT: EOMI, clear sclerae, somewhat dry oral mucosa. CV: RRR S1 S2 normal with no murmur LUNGS: CTA B with diminished bases. No R/R/W. ABD: Soft, NT/ND with normal bowel sounds. EXTR: BLE edema. INTEG: No rash. Warm, dry, well-perfused. Not diaphoretic. NEURO: No focal motor neuro deficit. Psychomotor slowing. Oriented at present. Lab-Past 14 Days, 35 Results 07/25/16 18:12: Acinetobacter baumannii (PCR) Negative, Antimicrobial Susceptibility , Edna albicans (PCR) Negative, Edna glabrata (PCR) Negative, Edna krusei (PCR) Negative, Edna parapsilosis (PCR) Negative, Edna tropicalis ( PCR) Negative, Enterobacter cloacae complex (PCR) Negative, Enterobacteriaceae species (PCR) Positive*A, Enterococcus species (PCR) Negative, Escherichia coli (PCR) Positive*A, Group B Streptococcus (PCR) Negative, Haemophilis influenzae ( PCR) Negative, KPC-Carbapenem Resistance Gene Negative, Klebsiella oxytoca (PCR ) Negative, Klebsiella pneumoniae (PCR) Negative, Listeria monocytogenes (PCR) Negative, Neisseria meningitidis (PCR) Negative, Proteus species (PCR) Negative , Pseudomonas aeruginosa (PCR) Negative, Serratia marcescens (PCR) Negative, Staphylococcus aureus (PCR)(LAB) Negative, Staphylococcus species (PCR) Negative , Streptococcus pneumoniae (PCR) Negative, Streptococcus pyogenes (TEM-PCR) Negative, Streptococcus species (PCR) Negative, Yury/B-Vancomycin Resistance Genes , mecA-Methicillin Resistance Gene 07/26/16 05:45: Albumin 3.4, Anion Gap 12.3, Basophils # (Auto) 0.0, Basophils (%) (Auto) 0, Blood Urea Nitrogen 20H, Calcium Level 8.9, Carbon Dioxide Level 28, Chloride Level 101, Creatinine 1.06, Eosinophils # (Auto) 0.0, Eosinophils (%) (Auto) 0, Estimat Glomerular Filtration Rate 60.5, Estimated GFR (Non- 50.0, Glucose Level 148H, Hematocrit 34.90L, Hemoglobin 11.7L, Lymphocytes # ( Auto) 0.8, Lymphocytes (%) (Auto) 8L, Mean Corpuscular Hemoglobin 27.8, Mean Corpuscular Hemoglobin Concent 33.5, Mean Corpuscular Volume 83, Mean Platelet Volume 9.6H, Monocytes # (Auto) 1.1, Monocytes (%) (Auto) 10, Neutrophils # ( Auto) 9.2, Neutrophils (%) (Auto) 82H, Phosphorus Level 3.8, Platelet Count 195 , Potassium Level 3.9, Red Blood Count 4.21, Red Cell Distribution Width 13.4, Sodium Level 137, White Blood Count 11.25H MICRO 07/25 Blood culture Positive for E coli. SPEC #: [id number] SUSANNAH: 07/25/16 STATUS: COMP REQ #: [id number] RECD: 07/25/16-1259 [facility] DR: SARITHA SOSA MD Order Location: LAB SOURCE: URINE DESCRIPTION: CLEAN CATC Procedure Result Verified URINE CULTURE Final Verified 07/27/16-0921 AM Source: URINE / CLEAN CATCH Order Location: LABORATORY Site: [facility] Received : 07/25/16 17:26 Order#: [id number] Urine Culture FINAL 07/27/16 09:20 S Escherichia coli >100,000 cfu/ml E. coli Antibiotic MAX INT Ampicillin >=32 R Ampicillin/sulbactam 4 S Cefazolin <=4 S Ceftriaxone <=1 S Ciprofloxacin <=0.25 S Gentamicin <=1 S Nitrofurantoin <=16 S Trimethoprim/Sulfa >=320 R S=SUSCEPTIBLE I=INTERMEDIATE R=RESISTANT S-DD= SUSCEPTIBLE, DOSE DEPENDENT IMAGING 07/25/16 CHEST PA/LAT (2 VIEW)* INDICATION: Sepsis. Comparison with 06/03/2014. FINDINGS: The lungs are well-aerated with no infiltrates. The heart is not enlarged. No hilar adenopathy. No pneumothorax or pleural effusions. IMPRESSION: Normal PA and lateral chest. ASSESSMENT Lisa Ramos is a 80 year old female admitted from home 07/25 after being seen in clinic earlier in the day with malaise, flank pain. Office labs and clinical presentation were consistent with pyelonephritis. She had fever and tachycardia , meeting SIRS/sepsis criteria. PLAN * SIRS/sepsis: Due to pyelonephritis, bacteremia. * Pyelonephritis and Bacteremia due to E coli: Urine and blood cultures as noted. Ceftriaxone. If not further improved 07/28, consider CT abdomen/pelvis to assess for abscess. * Delirium: Attributed to fever, infection, Treat underlying causes. Maintain day/night orientation. * Flank Pain: Acetaminophen, morphine. * Dehydration: NS bolus. 1 L maintenance. * Nausea: Ondansetron, promethazine. * F/E/N: Diabetic diet. IVF as above. Peripheral IV. * Prophylaxis: Enoxaparin * Code Status: DNR. Patient requested this on admit. * Dispo: Met inpatient criteria from admission. Likely to need 2-3 day stay. CHRONIC ISSUES * HTN: Losartan, chlorthalidone * Diabetes Mellitus Type II: Metformin, sliding scale. * GERD: Pantoprazole * HLD: Simvastatin * OA: Acetaminophen * Constipation: Bowel regimen TONG UNGER MD Jul 27, 2016 10:25
[2016-07-27] MEDS ORDERED: GLUCAGON EMERGENCY 1 MG/KIT IM PRN (10:40)
[2016-07-27] MEDS ORDERED: DEXTROSE ORAL GEL (GLUTOSE 40%) 15 GM TUBE PO PRN (10:40)
[2016-07-27] MEDS ORDERED: DEXTROSE 50% 25 GM/50 ML SYRINGE IV PRN (10:40)
[2016-07-27 12:07] VITALS: BP 128/60
[2016-07-27] MEDS: IBUPROFEN 600 MG (MOTRIN) TAB PO PRN (12:23)
[2016-07-27] MEDS: INSULIN LISPRO 1 UNIT/0.01 ML (HUMALOG) DOSE SC SCH ×3 (12:24→20:52)
--- NOTE | 2016-07-27 12:30 | NUR ---
Pt given Motrin 600 mg po for headache.
--- NOTE | 2016-07-27 12:50 | NUR ---
Accu check results 185mg/dl. Insulin 1 unit sq given in CM.
[2016-07-27 15:37] VITALS: BP 109/64
--- NOTE | 2016-07-27 16:00 | NUR ---
Pt sitting up in chair at bedside talking with daughter. Pt states that she had sweat so much that her gown is damp. New gowns taken to room.
[2016-07-27] MEDS ORDERED: SODIUM CHLORIDE 100 ML ONE (17:13)
[2016-07-27] MEDS: cefTRIAXone SODIUM 2 GM in SODIUM CHLORIDE 50 ML IV SCH (17:16)
[2016-07-27] MEDS: SIMvastatin 40 MG (ZOCOR) TAB PO SCH (20:32)
[2016-07-27 20:34] VITALS: BP 157/78
[2016-07-27] MEDS: NS FLUSH 10 ML PRN IV (20:39)
--- NOTE | 2016-07-27 20:40 | NUR ---
Requesting Morphine for right flank pain. 2 mg prn Morphine IV per order administered.
--- NOTE | 2016-07-27 21:00 | NUR ---
Prn effective, resting quietly in bed with eyes closed.
[2016-07-28] MEDS: IBUPROFEN 600 MG (MOTRIN) TAB PO PRN ×3 (00:17→21:42)
--- NOTE | 2016-07-28 00:20 | NUR ---
Awakened for VS, stated feeling "puny" temp 99.1, c/o right flank pain asking for pain medication. Prn Motrin given at this time with a warm blanket to right flank area.
[2016-07-28 00:38] VITALS: BP 157/75
--- NOTE | 2016-07-28 04:10 | NUR ---
VS and weight taken, sitting on side of bed watching movie, states "my fever broke" and now I'm hot. Denies pain or needs at this time continue to monitor
[2016-07-28 06:05] LABS: BASOPHILS % (AUTO) 0 % (0-2); EOSINOPHILS # (AUTO) 0.2 10^3uL; EOSINOPHILS % (AUTO) 2 % (0-4); LYMPHOCYTES # (AUTO) 1.1 X10^3; MEAN CORPUSCULAR HEMOGLOBIN 27.9 PG (26.0-34.0); MEAN CORPUSCULAR VOLUME 82 FL (80-100); MEAN PLATELET VOLUME 9.5 FL (6.0-9.5); MONOCYTES # (AUTO) 1.1 X10^3; MONOCYTES % (AUTO) 15 % (3-11); NEUTROPHILS # (AUTO) 4.7 X10^3; NEUTROPHILS % (AUTO) 67 % (51-67); PLATELET COUNT 187 10^3uL (150-450); WHITE BLOOD COUNT 7.03 10^3uL (4.0-11.0)
[2016-07-28 07:00] LABS: ALBUMIN 2.9 g/dL (3.4-5.0)
--- NOTE | 2016-07-28 07:15 | NUR ---
Report received from Swathi NORIEGA and care assumed.
[2016-07-28] MEDS: PANTOPRAZOLE 40 MG (PROTONIX) TAB PO SCH (07:21)
[2016-07-28] MEDS: INSULIN LISPRO 1 UNIT/0.01 ML (HUMALOG) DOSE SC SCH ×4 (07:28→21:41)
[2016-07-28 08:04] VITALS: BP 146/64
[2016-07-28] MEDS ORDERED: HYDROcodone/APAP 5 MG/325 MG (NORCO) TAB PO PRN (08:10)
--- NOTE | 2016-07-28 08:10 | NUR ---
Pt sitting on side of bed, eating breakfast. Denies pain at present.
--- NOTE | 2016-07-28 08:19 | Progress Note (E) ---
Progress Note SUBJECTIVE Overnight, didn't sleep well but pain is improved and she had no further fever since 0800 yesterday, Tmax 101.8. Has reported less pain. Glucose control stable. Had 1 BM yesterday after prune juice. WBC normal. Chemistry stable but CRP 17.50. Stirs to exam. Alert and interactive. Has some increased leg swelling but she intends to get OOB today and walk in halls. Updated her on findings, plan of care. OBJECTIVE Vital Signs Date Time Temp Pulse Resp B/P Pulse Ox O2 Delivery O2 Flow Rate FiO2 07/28/16 00:38 99.1 98 17 157/75 96 Room air I & O 07/27/16 07/28/16 Cumulative From/Thru 19:00 07:00 07/25/16 17:19 - 07/28/16 05:01 Intake Total 475 ml 1887 ml 7975 ml Output Total 1700 ml 2800 ml 25210 ml Balance -1225 ml -913 ml -3725 ml GEN: Resting in bed. Appears more well-rested overall. HEENT: EOMI, clear sclerae, moist oral mucosa. CV: RRR S1 S2 normal with no murmur LUNGS: CTA B with diminished bases. No R/R/W. ABD: Soft, NT/ND with normal bowel sounds. EXTR: BLE edema. INTEG: No rash. Warm, dry, well-perfused. Not diaphoretic. NEURO: No focal motor neuro deficit. Psychomotor slowing. Oriented at present. Lab-Past 14 Days, 35 Results 07/25/16 18:12: Acinetobacter baumannii (PCR) Negative, Antimicrobial Susceptibility , Edna albicans (PCR) Negative, Edna glabrata (PCR) Negative, Edna krusei (PCR) Negative, Edna parapsilosis (PCR) Negative, Edna tropicalis ( PCR) Negative, Enterobacter cloacae complex (PCR) Negative, Enterobacteriaceae species (PCR) Positive*A, Enterococcus species (PCR) Negative, Escherichia coli (PCR) Positive*A, Group B Streptococcus (PCR) Negative, Haemophilis influenzae ( PCR) Negative, KPC-Carbapenem Resistance Gene Negative, Klebsiella oxytoca (PCR ) Negative, Klebsiella pneumoniae (PCR) Negative, Listeria monocytogenes (PCR) Negative, Neisseria meningitidis (PCR) Negative, Proteus species (PCR) Negative , Pseudomonas aeruginosa (PCR) Negative, Serratia marcescens (PCR) Negative, Staphylococcus aureus (PCR)(LAB) Negative, Staphylococcus species (PCR) Negative , Streptococcus pneumoniae (PCR) Negative, Streptococcus pyogenes (TEM-PCR) Negative, Streptococcus species (PCR) Negative, Yury/B-Vancomycin Resistance Genes , mecA-Methicillin Resistance Gene 07/26/16 05:45: Albumin 3.4, Anion Gap 12.3, Basophils # (Auto) 0.0, Basophils (%) (Auto) 0, Blood Urea Nitrogen 20H, Calcium Level 8.9, Carbon Dioxide Level 28, Chloride Level 101, Creatinine 1.06, Eosinophils # (Auto) 0.0, Eosinophils (%) (Auto) 0, Estimat Glomerular Filtration Rate 60.5, Estimated GFR (Non- 50.0, Glucose Level 148H, Hematocrit 34.90L, Hemoglobin 11.7L, Lymphocytes # ( Auto) 0.8, Lymphocytes (%) (Auto) 8L, Mean Corpuscular Hemoglobin 27.8, Mean Corpuscular Hemoglobin Concent 33.5, Mean Corpuscular Volume 83, Mean Platelet Volume 9.6H, Monocytes # (Auto) 1.1, Monocytes (%) (Auto) 10, Neutrophils # ( Auto) 9.2, Neutrophils (%) (Auto) 82H, Phosphorus Level 3.8, Platelet Count 195 , Potassium Level 3.9, Red Blood Count 4.21, Red Cell Distribution Width 13.4, Sodium Level 137, White Blood Count 11.25H 07/28/16 05:05: Albumin 2.9L, Anion Gap 13.0, Basophils # (Auto) 0.0, Basophils (%) (Auto) 0, Blood Urea Nitrogen 18, Calcium Level 9.0, Carbon Dioxide Level 27, Chloride Level 96L, Creatinine 1.05, Eosinophils # (Auto) 0.2, Eosinophils (%) (Auto) 2, Estimat Glomerular Filtration Rate 61.2, Estimated GFR (Non- 50.6, Glucose Level 154H, Hematocrit 32.90L, Hemoglobin 11.2L, Lymphocytes # ( Auto) 1.1, Lymphocytes (%) (Auto) 15L, Mean Corpuscular Hemoglobin 27.9, Mean Corpuscular Hemoglobin Concent 34.0, Mean Corpuscular Volume 82, Mean Platelet Volume 9.5, Monocytes # (Auto) 1.1, Monocytes (%) (Auto) 15H, Neutrophils # ( Auto) 4.7, Neutrophils (%) (Auto) 67, Phosphorus Level 3.6, Platelet Count 187, Potassium Level 3.9, Red Blood Count 4.01, Red Cell Distribution Width 12.9, Sodium Level 132L, White Blood Count 7.03, C-Reactive Protein 17.50H MICRO 07/25 Blood culture Positive for E coli. SPEC #: [id number] SUSANNAH: 07/25/160 STATUS: COMP REQ #: [id number] RECD: 07/25/16-[address] [facility] [address]: SARITHA SOSA MD Order Location: LAB SOURCE: URINE DESCRIPTION: CLEAN CATC Procedure Result Verified URINE CULTURE Final Verified 07/27/16-0921 AM Source: URINE / CLEAN CATCH Order Location: LABORATORY Site: [facility] Received : 07/25/16 17:26 Order#: [id number] Urine Culture FINAL 07/27/16 09:20 S Escherichia coli >100,000 cfu/ml E. coli Antibiotic MAX INT Ampicillin >=32 R Ampicillin/sulbactam 4 S Cefazolin <=4 S Ceftriaxone <=1 S Ciprofloxacin <=0.25 S Gentamicin <=1 S Nitrofurantoin <=16 S Trimethoprim/Sulfa >=320 R S=SUSCEPTIBLE I=INTERMEDIATE R=RESISTANT S-DD= SUSCEPTIBLE, DOSE DEPENDENT IMAGING 07/29/16 RENAL SONO: PENDING 07/25/16 CHEST PA/LAT (2 VIEW)* INDICATION: Sepsis. Comparison with 06/03/2014. FINDINGS: The lungs are well-aerated with no infiltrates. The heart is not enlarged. No hilar adenopathy. No pneumothorax or pleural effusions. IMPRESSION: Normal PA and lateral chest. ASSESSMENT Lisa Ramos is a 80 year old female admitted from home 07/25 after being seen in clinic earlier in the day with malaise, flank pain. Office labs and clinical presentation were consistent with pyelonephritis. She had fever and tachycardia , meeting SIRS/sepsis criteria. PLAN * SIRS/sepsis: Due to pyelonephritis, bacteremia. * Pyelonephritis and Bacteremia due to E coli: Urine and blood cultures as noted. Ceftriaxone. If not further improved 07/28, consider CT abdomen/pelvis to assess for abscess. * Delirium: Resolved. Attributed to fever, infection, Treat underlying causes. Maintain day/night orientation. * Flank Pain: Acetaminophen, hydrocodone/acetaminophen. Morphine for breakthrough pain. * Dehydration: NS bolus. 1 L maintenance. * Nausea: Ondansetron, promethazine. * F/E/N: Diabetic diet. IVF as above. Peripheral IV. * Prophylaxis: Enoxaparin * Code Status: DNR. Patient requested this on admit. * Dispo: Met inpatient criteria from admission. Renal sono in AM. Still appropriate for IV antibiotic because she's having sweats suggestive of breaking fevers. CHRONIC ISSUES * HTN: Losartan, chlorthalidone * Diabetes Mellitus Type II: Metformin, sliding scale. * GERD: Pantoprazole * HLD: Simvastatin * OA: Acetaminophen * Constipation: Bowel regimen TONG UNGER MD Jul 28, 2016 08:09
--- NOTE | 2016-07-28 08:45 | NUR ---
Pt ambulated to shower and back to room. States she feels better today.
[2016-07-28] MEDS: CHLORTHALIDONE 50 MG PO SCH (09:20)
[2016-07-28] MEDS: CHOLECALCIFEROL 1000 INT UNITS (VITAMIN D3) TABLET PO SCH (09:20)
[2016-07-28] MEDS: metFORMIN 500 MG (GLUCOPHAGE) TABLET PO SCH ×2 (09:20→17:46)
[2016-07-28] MEDS: COENZYME Q10 100 MG CAPSULE PO SCH (09:20)
[2016-07-28] MEDS: ASPIRIN 81 MG CHEW (LOW-DOSE) PO SCH (09:20)
[2016-07-28] MEDS: LOSARTAN 100 MG (COZAAR) TABLET PO SCH (09:20)
[2016-07-28] MEDS: MULTIVITAMIN W/MINERALS (THERAGRAN M) TABLET PO SCH (09:20)
[2016-07-28] MEDS: CYANOCOBALAMIN 1000 MCG (VITAMIN B-12) TABLET PO SCH (09:21)
[2016-07-28] MEDS: NS FLUSH 3 ML DAILY IV SCH (09:22)
[2016-07-28 12:02] VITALS: BP 134/68
[2016-07-28] MEDS ORDERED: ENOXAPARIN 40 MG/0.4 ML (LOVENOX) SYR SC SCH (13:25)
[2016-07-28 15:43] VITALS: BP 179/79
--- NOTE | 2016-07-28 16:44 | NUR ---
Summary: Pt has had several visitors throughout the day. 1200 accu check results 201, 2 units given. 1425 Pt c/o of headache and flank pain. [place] 5/325 1 po given for pain. 1550 Pt states she continues to have pain and now has a fever of 99.8. Motrin 600 mg po given for fever.
[2016-07-28] MEDS: ENOXAPARIN 40 MG/0.4 ML (LOVENOX) SYR SC SCH (17:46)
[2016-07-28] MEDS: cefTRIAXone SODIUM 2 GM in SODIUM CHLORIDE 50 ML IV SCH (17:50)
--- NOTE | 2016-07-28 18:10 | NUR ---
Pt states that [place] did not work but states she has a pain of 5/10.
[2016-07-28 19:34] VITALS: BP 123/49
[2016-07-28] MEDS: SIMvastatin 40 MG (ZOCOR) TAB PO SCH (20:59)
--- NOTE | 2016-07-28 21:45 | NUR ---
Motrin given for right flank pain
--- NOTE | 2016-07-28 23:00 | NUR ---
Prn Motrin effective, resting quietly in bed.
[2016-07-29] VITALS: BP 122/71
[2016-07-29 03:58] VITALS: BP 139/68
--- NOTE | 2016-07-29 06:46 | NUR ---
NPO after midnight, no am medications administered as Lisa was resting sound at this time, awakened for accu check and returned to sound sleep. She was up early am hours.
[2016-07-29 07:54] VITALS: BP 135/65
[2016-07-29] MEDS: INSULIN LISPRO 1 UNIT/0.01 ML (HUMALOG) DOSE SC SCH ×4 (08:00→20:54)
--- NOTE | 2016-07-29 10:00 | NUR ---
Radiology here for renal ultrasound.
--- NOTE | 2016-07-29 10:56 | Progress Note (E) ---
Progress Note S: Awake and alert, had renal sono this am, shes feeling better and hungry. no fevers in last 24 hours Renal sono shows 2.8 cm left renal cyst no other pathology O: I & O Past 24 hrs 07/29/16 07:00 Intake Total 2122 ml Output Total 4800 ml Balance -2678 ml Intake Oral 2122 ml Output Urine Total 4800 ml Vitals: Vital Signs Date Time Temp Pulse Resp B/P Pulse Ox O2 Delivery O2 Flow Rate FiO2 07/29/16 07:54 97.5 85 20 135/65 95 Room air 07/28/16 15:43 0.00 GEN: Resting in bed.no pain, feeling better, Appears more well-rested overall. HEENT: EOMI, clear sclerae, moist oral mucosa. CV: RRR S1 S2 normal with no murmur LUNGS: CTA B with diminished bases. No R/R/W. ABD: Soft, NT/ND with normal bowel sounds. EXTR: BLE edema. INTEG: No rash. Warm, dry, well-perfused. Not diaphoretic. NEURO: No focal motor neuro deficit. Oriented at present. Lab-Past 14 Days, 35 Results 07/25/16 18:12: Acinetobacter baumannii (PCR) Negative, Antimicrobial Susceptibility , Edna albicans (PCR) Negative, Edna glabrata (PCR) Negative, Edna krusei (PCR) Negative, Edna parapsilosis (PCR) Negative, Edna tropicalis ( PCR) Negative, Enterobacter cloacae complex (PCR) Negative, Enterobacteriaceae species (PCR) Positive*A, Enterococcus species (PCR) Negative, Escherichia coli (PCR) Positive*A, Group B Streptococcus (PCR) Negative, Haemophilis influenzae ( PCR) Negative, KPC-Carbapenem Resistance Gene Negative, Klebsiella oxytoca (PCR ) Negative, Klebsiella pneumoniae (PCR) Negative, Listeria monocytogenes (PCR) Negative, Neisseria meningitidis (PCR) Negative, Proteus species (PCR) Negative , Pseudomonas aeruginosa (PCR) Negative, Serratia marcescens (PCR) Negative, Staphylococcus aureus (PCR)(LAB) Negative, Staphylococcus species (PCR) Negative , Streptococcus pneumoniae (PCR) Negative, Streptococcus pyogenes (TEM-PCR) Negative, Streptococcus species (PCR) Negative, Yury/B-Vancomycin Resistance Genes , mecA-Methicillin Resistance Gene 07/26/16 05:45: Albumin 3.4, Anion Gap 12.3, Basophils # (Auto) 0.0, Basophils (%) (Auto) 0, Blood Urea Nitrogen 20H, Calcium Level 8.9, Carbon Dioxide Level 28, Chloride Level 101, Creatinine 1.06, Eosinophils # (Auto) 0.0, Eosinophils (%) (Auto) 0, Estimat Glomerular Filtration Rate 60.5, Estimated GFR (Non- 50.0, Glucose Level 148H, Hematocrit 34.90L, Hemoglobin 11.7L, Lymphocytes # ( Auto) 0.8, Lymphocytes (%) (Auto) 8L, Mean Corpuscular Hemoglobin 27.8, Mean Corpuscular Hemoglobin Concent 33.5, Mean Corpuscular Volume 83, Mean Platelet Volume 9.6H, Monocytes # (Auto) 1.1, Monocytes (%) (Auto) 10, Neutrophils # ( Auto) 9.2, Neutrophils (%) (Auto) 82H, Phosphorus Level 3.8, Platelet Count 195 , Potassium Level 3.9, Red Blood Count 4.21, Red Cell Distribution Width 13.4, Sodium Level 137, White Blood Count 11.25H 07/28/16 05:05: Albumin 2.9L, Anion Gap 13.0, Basophils # (Auto) 0.0, Basophils (%) (Auto) 0, Blood Urea Nitrogen 18, Calcium Level 9.0, Carbon Dioxide Level 27, Chloride Level 96L, Creatinine 1.05, Eosinophils # (Auto) 0.2, Eosinophils (%) (Auto) 2, Estimat Glomerular Filtration Rate 61.2, Estimated GFR (Non- 50.6, Glucose Level 154H, Hematocrit 32.90L, Hemoglobin 11.2L, Lymphocytes # ( Auto) 1.1, Lymphocytes (%) (Auto) 15L, Mean Corpuscular Hemoglobin 27.9, Mean Corpuscular Hemoglobin Concent 34.0, Mean Corpuscular Volume 82, Mean Platelet Volume 9.5, Monocytes # (Auto) 1.1, Monocytes (%) (Auto) 15H, Neutrophils # ( Auto) 4.7, Neutrophils (%) (Auto) 67, Phosphorus Level 3.6, Platelet Count 187, Potassium Level 3.9, Red Blood Count 4.01, Red Cell Distribution Width 12.9, Sodium Level 132L, White Blood Count 7.03, C-Reactive Protein 17.50H MICRO 04/27 Blood culture Positive for E coli. SPEC #: [id number] SUSANNAH: 07/25/16-1230 STATUS: EARLINE SCHUSTER #: [id number] RECD: 07/25/16-[address]: SARITHA SOSA MD Order Location: LAB SOURCE: URINE DESCRIPTION: CLEAN CATC Procedure Result Verified URINE CULTURE Final Verified 07/27/16-09 AM Source: URINE / CLEAN CATCH Order Location: LABORATORY Site: [facility] Received : 07/25/16 17:26 Order#: [id number] Urine Culture FINAL 07/27/16 09:20 S Escherichia coli >100,000 cfu/ml E. coli Antibiotic MAX INT Ampicillin >=32 R Ampicillin/sulbactam 4 S Cefazolin <=4 S Ceftriaxone <=1 S Ciprofloxacin <=0.25 S Gentamicin <=1 S Nitrofurantoin <=16 S Trimethoprim/Sulfa >=320 R S=SUSCEPTIBLE I=INTERMEDIATE R=RESISTANT S-DD= SUSCEPTIBLE, DOSE DEPENDENT Blood cultures- positive Ecoli IMAGING 07/29/16 RENAL SONO: PENDING 07/25/16 CHEST PA/LAT (2 VIEW)* INDICATION: Sepsis. Comparison with 06/03/2014. FINDINGS: The lungs are well-aerated with no infiltrates. The heart is not enlarged. No hilar adenopathy. No pneumothorax or pleural effusions. IMPRESSION: Normal PA and lateral chest. ASSESSMENT Lisa Ramos is a 80 year old female admitted from home 07/25 after being seen in clinic earlier in the day with malaise, flank pain. Office labs and clinical presentation were consistent with pyelonephritis. She had fever and tachycardia , meeting SIRS/sepsis criteria. PLAN * SIRS/sepsis: Due to pyelonephritis, bacteremia. * Pyelonephritis and Bacteremia due to E coli: Urine and blood cultures as noted. Ceftriaxone. Start oral meds today * Delirium: Resolved. Attributed to fever, infection, Treat underlying causes. Maintain day/night orientation. * Flank Pain: Acetaminophen, hydrocodone/acetaminophen. Morphine for breakthrough pain. * Dehydration: NS bolus. 1 L maintenance. * Nausea: Ondansetron, promethazine. * F/E/N: Diabetic diet. IVF as above. Peripheral IV. * Prophylaxis: Enoxaparin * Code Status: DNR. Patient requested this on admit. * Dispo: Met inpatient criteria from admission. Renal sono done today-pending. Will start po antibitoics today- she is improved. Depending on sono can go home today or tomorrow. She wants to go tomorrow- renal sono shows only a left kidney cyst * * CHRONIC ISSUES * HTN: Losartan, chlorthalidone * Diabetes Mellitus Type II: Metformin, sliding scale. * GERD: Pantoprazole * HLD: Simvastatin * OA: Acetaminophen * Constipation: Bowel regimen Pt seen and examined with AUTO BODY MAN, agree with above. Pt is feeling better and denies any sx of fever. Will change abx to po today and if she can tolerated this without escalation in sx, will send home tomorrow. Sarah Perez APRN July 29, 2016 10:56 Sourav Muro MD July 29, 2016 21:07
--- NOTE | 2016-07-29 11:03 | Diagnostic Imaging Report ---
INDICATION: Pyelonephritis. TECHNIQUE: Ultrasonography of the kidneys was performed. FINDINGS: The right and left kidneys measure 12 x 5.0 cm and 11 x 5.0 cm respectively. There is no evidence of hydronephrosis. There is an approximately 2.8 cm cyst in the midportion of the left kidney. No shadowing calculus is identified. There is no evidence of perinephric fluid collection. The initial bladder volume is approximately 280 mL without post void residual. Both ureteric jets were identified. IMPRESSION: 2.8 cm left renal cyst. No other renal or bladder abnormality is identified. Dictated by: Dictated on workstation # [id number]
[2016-07-29] MEDS: metFORMIN 500 MG (GLUCOPHAGE) TABLET PO SCH ×2 (11:22→17:43)
[2016-07-29] MEDS: CHLORTHALIDONE 50 MG PO SCH (11:22)
[2016-07-29] MEDS: CHOLECALCIFEROL 1000 INT UNITS (VITAMIN D3) TABLET PO SCH (11:22)
[2016-07-29] MEDS: PANTOPRAZOLE 40 MG (PROTONIX) TAB PO SCH (11:22)
[2016-07-29] MEDS: LOSARTAN 100 MG (COZAAR) TABLET PO SCH (11:22)
[2016-07-29] MEDS: MULTIVITAMIN W/MINERALS (THERAGRAN M) TABLET PO SCH (11:22)
[2016-07-29] MEDS: CIPROFLOXACIN (CIPRO) 500 MG TABLET PO SCH ×2 (11:22→21:22)
[2016-07-29] MEDS: ASPIRIN 81 MG CHEW (LOW-DOSE) PO SCH (11:23)
[2016-07-29] MEDS: CYANOCOBALAMIN 1000 MCG (VITAMIN B-12) TABLET PO SCH (11:23)
[2016-07-29] MEDS: NS FLUSH 3 ML DAILY IV SCH (11:25)
[2016-07-29] MEDS: COENZYME Q10 100 MG CAPSULE PO SCH (11:33)
[2016-07-29] MEDS: IBUPROFEN 600 MG (MOTRIN) TAB PO PRN ×2 (11:33→21:21)
--- NOTE | 2016-07-29 13:33 | NUR ---
Nutrition Follow Up: Visited with pt. re: appetite and meals. Pt. stated she feels "so much better" today; she had no complaints about the food, and is eating 100% of medium diabetic diet. Weight today: 254.1#/115.5 kg--this is down 3# from admission Labs: N/A 1. No changes recommended at this time; will provide medium diabetic diet as ordered and monitor intake for adequacy.
[2016-07-29 15:20] VITALS: BP 136/65
[2016-07-29] MEDS: ENOXAPARIN 40 MG/0.4 ML (LOVENOX) SYR SC SCH (17:43)
--- NOTE | 2016-07-29 19:25 | NUR ---
Pain has been controlled with ibuprofen today. Patient has tolerated oral antibiotics without difficulty.
[2016-07-29 19:34] VITALS: BP 171/77
--- NOTE | 2016-07-29 20:00 | NUR ---
Resting in bed. Alert and oriented. No discomforts voiced. Afebrile. Up to bathroom without assistance. Voiding without difficulty. Urine yellow. Taking fluids well. Comfortable at present time.
--- NOTE | 2016-07-29 21:21 | NUR ---
Ibuprofen 600mg administered for generalized discomfort. IUp ad og in room. No concerns.
[2016-07-29] MEDS: SIMvastatin 40 MG (ZOCOR) TAB PO SCH (21:22)
[2016-07-30] VITALS: BP 154/78
[2016-07-30] MEDS: morphine INJ 4 MG/ML 1 ML SYRINGE IV PRN (00:17)
--- NOTE | 2016-07-30 00:17 | NUR ---
MS 2mg administered per patient request for back discomfort. Call light within reach.
[2016-07-30] MEDS: PANTOPRAZOLE 40 MG (PROTONIX) TAB PO SCH (06:26)
--- NOTE | 2016-07-30 06:30 | NUR ---
Patient rested well tonight. Temp at midnight was 99.5. orally. No other discomforts voiced. Anxious to go home today.
[2016-07-30] MEDS: INSULIN LISPRO 1 UNIT/0.01 ML (HUMALOG) DOSE SC SCH ×2 (06:38→12:56)
[2016-07-30 07:38] VITALS: BP 147/74
[2016-07-30] MEDS: CYANOCOBALAMIN 1000 MCG (VITAMIN B-12) TABLET PO SCH (08:51)
[2016-07-30] MEDS: CHOLECALCIFEROL 1000 INT UNITS (VITAMIN D3) TABLET PO SCH (08:51)
[2016-07-30] MEDS: NS FLUSH 3 ML DAILY IV SCH (08:51)
[2016-07-30] MEDS: MULTIVITAMIN W/MINERALS (THERAGRAN M) TABLET PO SCH (08:51)
[2016-07-30] MEDS: CHLORTHALIDONE 50 MG PO SCH (08:51)
[2016-07-30] MEDS: CIPROFLOXACIN (CIPRO) 500 MG TABLET PO SCH (08:51)
[2016-07-30] MEDS: metFORMIN 500 MG (GLUCOPHAGE) TABLET PO SCH (08:51)
[2016-07-30] MEDS: LOSARTAN 100 MG (COZAAR) TABLET PO SCH (08:51)
[2016-07-30] MEDS: ASPIRIN 81 MG CHEW (LOW-DOSE) PO SCH (08:51)
[2016-07-30] MEDS: COENZYME Q10 100 MG CAPSULE PO SCH (08:51)
[2016-07-30] MEDS: IBUPROFEN 600 MG (MOTRIN) TAB PO PRN (08:58)
[2016-07-30] MEDS ORDERED: CPR500T PO (09:01)
--- NOTE | 2016-07-30 09:04 | Discharge Instructions (E) ---
Discharge Instructions Instructions You were treated for Ecoli in your blood and urine. You will finish 5 more day of Cipro Rest and stay hydrated. Contact Dr Vora for any questions or concerns Activity Instructions as tolerates Doctor's Appointment Make appt to see Dr Vora this Friday or Friday Will need repeat UA Discharge Diet: Carbohydrate controlled Sarah Masterson APRN July 30, 2016 09:04
--- NOTE | 2016-07-30 09:06 | Discharge Summary (E FT) ---
Discharge Summary (E FT) Admit Date Jul 25, 2016 at 16:59 Discharge Date July 30, 2016 Admitting Provider Rupert Stone MD Primary Care Provider Saritha Vora MD Attending Provider Rupert Stone MD Consulting Provider Hospital Course Summary HPI Lisa Ramos is a 80 year old female admitted from home 07/25 for concern of pyelonephritis. She had been having right sided flank pain x 5 days, getting progressively worse. Has back pain chronically but this felt different. Seen in PCP's office today and had CVA tenderness. Reported to PCP that she has been chilling at home at times but no fever reported. In office, UA showed pyuria, bacteria, LE. CRP 6.1. WBC was normal. PCP called patient and instructed her to come to hospital for admission. She drove herself here form home. On arrival, somewhat tired but pleasant, interactive, able to answer questions. Relays history as above. As she is a nurse, she worries of course about feeling septic. No nausea or vomiting but is tired. Feels dehydrated. Having some flank pain that improved with morphine. She has improved on current treatment and wants to go home today. No high fevers in last 24 hours. Vital Signs Date Time Temp Pulse Resp B/P Pulse Ox O2 Delivery O2 Flow Rate FiO2 07/30/16 07:38 97.7 81 18 147/74 93 Room air 07/28/16 15:43 0.00 GEN: Up to chair, doing well, ate well. Minimal back pain. feeling better, Appears more well-rested overall. HEENT: EOMI, clear sclerae, moist oral mucosa. CV: RRR S1 S2 normal with no murmur LUNGS: CTA B No R/R/W. ABD: Soft, NT/ND with normal bowel sounds. EXTR: no cyanosis INTEG: No rash. Warm, dry, well-perfused. Not diaphoretic. NEURO: No focal motor neuro deficit. Oriented at present. Lab-Past 14 Days, 35 Results 07/25/16 18:12: Acinetobacter baumannii (PCR) Negative, Antimicrobial Susceptibility , Edna albicans (PCR) Negative, Edna glabrata (PCR) Negative, Edna krusei (PCR) Negative, Edna parapsilosis (PCR) Negative, Edna tropicalis ( PCR) Negative, Enterobacter cloacae complex (PCR) Negative, Enterobacteriaceae species (PCR) Positive*A, Enterococcus species (PCR) Negative, Escherichia coli (PCR) Positive*A, Group B Streptococcus (PCR) Negative, Haemophilis influenzae ( PCR) Negative, KPC-Carbapenem Resistance Gene Negative, Klebsiella oxytoca (PCR ) Negative, Klebsiella pneumoniae (PCR) Negative, Listeria monocytogenes (PCR) Negative, Neisseria meningitidis (PCR) Negative, Proteus species (PCR) Negative , Pseudomonas aeruginosa (PCR) Negative, Serratia marcescens (PCR) Negative, Staphylococcus aureus (PCR)(LAB) Negative, Staphylococcus species (PCR) Negative , Streptococcus pneumoniae (PCR) Negative, Streptococcus pyogenes (TEM-PCR) Negative, Streptococcus species (PCR) Negative, Yury/B-Vancomycin Resistance Genes , mecA-Methicillin Resistance Gene 07/26/16 05:45: Albumin 3.4, Anion Gap 12.3, Basophils # (Auto) 0.0, Basophils (%) (Auto) 0, Blood Urea Nitrogen 20H, Calcium Level 8.9, Carbon Dioxide Level 28, Chloride Level 101, Creatinine 1.06, Eosinophils # (Auto) 0.0, Eosinophils (%) (Auto) 0, Estimat Glomerular Filtration Rate 60.5, Estimated GFR (Non- 50.0, Glucose Level 148H, Hematocrit 34.90L, Hemoglobin 11.7L, Lymphocytes # ( Auto) 0.8, Lymphocytes (%) (Auto) 8L, Mean Corpuscular Hemoglobin 27.8, Mean Corpuscular Hemoglobin Concent 33.5, Mean Corpuscular Volume 83, Mean Platelet Volume 9.6H, Monocytes # (Auto) 1.1, Monocytes (%) (Auto) 10, Neutrophils # ( Auto) 9.2, Neutrophils (%) (Auto) 82H, Phosphorus Level 3.8, Platelet Count 195 , Potassium Level 3.9, Red Blood Count 4.21, Red Cell Distribution Width 13.4, Sodium Level 137, White Blood Count 11.25H 07/28/16 05:05: Albumin 2.9L, Anion Gap 13.0, Basophils # (Auto) 0.0, Basophils (%) (Auto) 0, Blood Urea Nitrogen 18, Calcium Level 9.0, Carbon Dioxide Level 27, Chloride Level 96L, Creatinine 1.05, Eosinophils # (Auto) 0.2, Eosinophils (%) (Auto) 2, Estimat Glomerular Filtration Rate 61.2, Estimated GFR (Non- 50.6, Glucose Level 154H, Hematocrit 32.90L, Hemoglobin 11.2L, Lymphocytes # ( Auto) 1.1, Lymphocytes (%) (Auto) 15L, Mean Corpuscular Hemoglobin 27.9, Mean Corpuscular Hemoglobin Concent 34.0, Mean Corpuscular Volume 82, Mean Platelet Volume 9.5, Monocytes # (Auto) 1.1, Monocytes (%) (Auto) 15H, Neutrophils # ( Auto) 4.7, Neutrophils (%) (Auto) 67, Phosphorus Level 3.6, Platelet Count 187, Potassium Level 3.9, Red Blood Count 4.01, Red Cell Distribution Width 12.9, Sodium Level 132L, White Blood Count 7.03, C-Reactive Protein 17.50H MICRO 07/25 Blood culture Positive for E coli. SPEC #: [id number] SUSANNAH: 07/25/16 STATUS: EARLINE REQ #: [id number] RECD: 07/25/16 [facility] [place] DR: SARITHA VORA MD Order Location: LAB SOURCE: URINE DESCRIPTION: CLEAN CATC Procedure Result Verified URINE CULTURE Final Verified 07/27/16-0921 AM Source: URINE / CLEAN CATCH Order Location: LABORATORY Site: [facility] Received : 07/25/16 17:26 Order#: [id number] Urine Culture FINAL 04/29/17 09:20 S Escherichia coli >100,000 cfu/ml E. coli Antibiotic MAX INT Ampicillin >=32 R Ampicillin/sulbactam 4 S Cefazolin <=4 S Ceftriaxone <=1 S Ciprofloxacin <=0.25 S Gentamicin <=1 S Nitrofurantoin <=16 S Trimethoprim/Sulfa >=320 R S=SUSCEPTIBLE I=INTERMEDIATE R=RESISTANT S-DD= SUSCEPTIBLE, DOSE DEPENDENT Blood cultures- positive Ecoli IMAGING 07/29/16 RENAL SONO: PENDING 07/25/16 CHEST PA/LAT (2 VIEW)* INDICATION: Sepsis. Comparison with 06/03/2014. FINDINGS: The lungs are well-aerated with no infiltrates. The heart is not enlarged. No hilar adenopathy. No pneumothorax or pleural effusions. IMPRESSION: Normal PA and lateral chest. ASSESSMENT Lisa Ramos is a 80 year old female admitted from home 07/25 after being seen in clinic earlier in the day with malaise, flank pain. Office labs and clinical presentation were consistent with pyelonephritis. She had fever and tachycardia , meeting SIRS/sepsis criteria. PLAN * SIRS/sepsis: Due to pyelonephritis, bacteremia. * Pyelonephritis and Bacteremia due to E coli: Urine and blood cultures as noted. Ceftriaxone. now doing well on Cipro PO * Delirium: Resolved. Attributed to fever, infection, Treat underlying causes. Maintain day/night orientation. * Flank Pain: Acetaminophen, hydrocodone/acetaminophen. Morphine for breakthrough pain. * Dehydration: NS bolus. improved * Nausea: Ondansetron, promethazine. * F/E/N: Diabetic diet. IVF as above. Peripheral IV. * Code Status: DNR. Patient requested this on admit. * Dispo: Met inpatient criteria from admission. Will go home today, appt PCP Friday or Friday, Home on PO Cipro- will need f/u UA. She has improved. PCP to clear her to return to work * * CHRONIC ISSUES * HTN: Losartan, chlorthalidone * Diabetes Mellitus Type II: Metformin, sliding scale. * GERD: Pantoprazole * HLD: Simvastatin * OA: Acetaminophen * Constipation: Bowel regimen Pt seen and examined with G[employer] CLUB MANAGER, agree with above. She feels better and is tolerating po Cipro. Home today with f/u within the next week with PCP. AH Discharge Disposition Home today F/U appt PCP this Friday or Friday- she will call to schedule Daughter will be available to help her New Medications: Ciprofloxacin HCl (Cipro) 500 Mg Tablet 500 MG PO BID #10 TAB Continued Medications: Aspirin (Aspirin) 81 Mg Tablet. 81 MG PO DAILY TAB Chlorthalidone (Chlorthalidone) 25 Mg Tablet 25 MG PO DAILY Days 90 Cholecalciferol (Vitamin D3) (Vitamin D3) 1,000 Unit Tab 1000 UNIT PO DAILY Vitamin/Mineral Supplemnt Ref 0 TAB Cyanocobalamin (Vitamin B-12) (B-12) 500 Mcg Tablet 500 MCG PO DAILY TAB Losartan Potassium (Losartan Potassium) 100 Mg Tablet 100 MG PO DAILY Days 90 Metformin HCl (Metformin HCl) 1,000 Mg Tablet 500 MG PO BID TAB Multivit-Min/Iron Fum/Folic AC (Qcdmd-Kffnzwy-Sgasnhmf Tablet) 1 Each Tablet 1 EACH PO DAILY TAB Pantoprazole Sodium (Pantoprazole Sodium) 40 Mg Tablet. 40 MG PO DAILY Days 90 Ranitidine HCl (Zantac) 150 Mg Tablet 150 MG PO DAILY TAB Simvastatin (Simvastatin) 80 Mg Tablet 80 MG PO DAILY Days 90 Ubidecarenone (Coenzyme Q10) 100 Mg Tablet 100 MG PO DAILY TAB Follow up Instructions You were treated for Ecoli in your blood and urine. You will finish 5 more day of Cipro Rest and stay hydrated. Contact Dr Vora for any questions or concerns Copies to: End of Report . Sarah Masterson APRN July 30, 2016 09:06 Sourav Muro MD July 30, 2016 09:23
[2016-07-30 12:51] VITALS: BP 140/70
--- NOTE | 2016-07-30 14:00 | NUR ---
Discharge instructions given by Elsie Murry RN. Patient demonstrated verbal understanding.
--- NOTE | 2016-07-30 14:45 | NUR ---
Patient dismissed ambulatory accompanied by a YOUTH DIRECTOR.
== END 2016-07-30 14:45 | disposition home or self-care (01) | DRG 872 ==
LOC: OBSVTOIN 16:59 → MED/SURG 16:59
PROVIDERS: ADMIT Internal Medicine; ATTEND Internal Medicine
DX: A41.51 Sepsis due to Escherichia coli [E. coli] (principal); N12 Tubulo-interstitial nephritis, not specified as acute or chronic; E86.0 Dehydration; I10 Essential (primary) hypertension; E11.9 Type 2 diabetes mellitus without complications; K21.9 Gastro-esophageal reflux disease without esophagitis; M19.90 Unspecified osteoarthritis, unspecified site; E78.5 Hyperlipidemia, unspecified; Z66 Do not resuscitate
CPT/HCPCS: 36415; 71020; 76770; 80069; 85025; 86140; 87040; 87077; 87150; 87186; 87205

== ENCOUNTER → 2016-07-25 | Outpatient (REF) | payer MEDICARE ==
[~2016-07-25] MED LIST: ASPI-860 PO; BETA15CR3 TOP; CHLO25TA2 PO; CHOL10002 PO; CPR500T PO; CYAN500T44 PO; LOSA100T8 PO; METF1000 PO; MULT-1047 PO; PANT40TA3 PO; RANI150T15 PO; SIMV80TA3 PO; UBID100T7 PO
[2016-07-25 13:05] LABS: BASOPHILS % (AUTO) 0 % (0-2); EOSINOPHILS # (AUTO) 0.1 10^3uL; EOSINOPHILS % (AUTO) 1 % (0-4); LYMPHOCYTES # (AUTO) 1.2 X10^3; MEAN CORPUSCULAR HGB CONC 33.7 g/dL (31.0-37.0); MEAN CORPUSCULAR VOLUME 83 FL (80-100); MEAN PLATELET VOLUME 9.6 FL (6.0-9.5); MONOCYTES # (AUTO) 0.8 X10^3; MONOCYTES % (AUTO) 9 % (3-11); NEUTROPHILS # (AUTO) 7.3 X10^3; NEUTROPHILS % (AUTO) 78 % (51-67); PLATELET COUNT 232 10^3uL (150-450); WHITE BLOOD COUNT 9.43 10^3uL (4.0-11.0)
[2016-07-25 13:06] LABS: BILIRUBIN,URINE Negative (Negative); COLOR,URINE Yellow; GLUCOSE, URINE (UA) Negative (Negative); LEUKOCYTE ESTERASE ,URINE 3+ (Negative); PH,URINE 5.5 (5.0 - 8.0); UROBILINOGEN,URINE 0.2 mg/dL (0.2-1.0)
[2016-07-25 13:12] LABS: CLARITY,URINE Slightly Cloudy; URINE CENTRIFUGED VOLUME 12 mL
[2016-07-25 13:14] LABS: ALBUMIN 3.7 g/dL (3.4-5.0); ANION GAP 16.5 MEQ/L (3-15); CALCULATED IONIZED CALCIUM 4.5 mg/dL (3.8-4.6); TOTAL PROTEIN 6.5 g/dL (6.4-8.5)
[2016-07-25 13:47] LABS: ERYTHROCYTE SEDIMENTATION RT* 34 mm/hr (0-23)
== END ==
LOC: LAB 12:52
PROVIDERS: ATTEND Internal Medicine
DX: Z00.00 Encounter for general adult medical examination without abnormal findings (principal); M54.5 Low back pain; R42 Dizziness and giddiness; I10 Essential (primary) hypertension; M17.0 Bilateral primary osteoarthritis of knee; E78.4 Other hyperlipidemia; R82.99 Other abnormal findings in urine; E11.9 Type 2 diabetes mellitus without complications
CPT/HCPCS: 80053; 80061; 81003; 81015; 82043; 83036; 84443; 85025; 85652; 86140; 87077; 87088; 87186

== ENCOUNTER → 2016-08-01 | Outpatient (CLI) | payer MEDICARE ==
[~2016-08-01] MED LIST changes: +CHOL10002 PO; +CPR500T PO; +CYAN500T44 PO; +MULT-1047 PO; +RANI150T15 PO; +UBID100T7 PO
[2016-08-01 09:09] LABS: BASOPHILS % (AUTO) 1 % (0-2); EOSINOPHILS # (AUTO) 0.2 10^3uL; EOSINOPHILS % (AUTO) 3 % (0-4); LYMPHOCYTES # (AUTO) 1.4 X10^3; MEAN CORPUSCULAR HEMOGLOBIN 27.6 PG (26.0-34.0); MEAN CORPUSCULAR HGB CONC 33.2 g/dL (31.0-37.0); MEAN CORPUSCULAR VOLUME 83 FL (80-100); MEAN PLATELET VOLUME 8.9 FL (6.0-9.5); MONOCYTES # (AUTO) 0.7 X10^3; MONOCYTES % (AUTO) 9 % (3-11); NEUTROPHILS # (AUTO) 5.8 X10^3; NEUTROPHILS % (AUTO) 71 % (51-67); PLATELET COUNT 253 10^3uL (150-450); WHITE BLOOD COUNT 8.22 10^3uL (4.0-11.0)
[2016-08-01 09:10] LABS: BILIRUBIN,URINE Negative (Negative); CLARITY,URINE Slightly Cloudy; COLOR,URINE Yellow; GLUCOSE, URINE (UA) Negative (Negative); LEUKOCYTE ESTERASE ,URINE Trace (Negative); PH,URINE 6.5 (5.0 - 8.0); UROBILINOGEN,URINE 0.2 mg/dL (0.2-1.0)
[2016-08-01 09:11] LABS: URINE CENTRIFUGED VOLUME 12 mL
[2016-08-01 09:18] LABS: RBC,URINE 0-2 /HPF
[2016-08-01 09:43] LABS: ANION GAP 16.6 MEQ/L (3-15)
== END ==
LOC: LAB 08:55
PROVIDERS: ATTEND Internal Medicine
DX: N10 Acute pyelonephritis (principal); I10 Essential (primary) hypertension; M54.5 Low back pain; R82.99 Other abnormal findings in urine
CPT/HCPCS: 36415; 80048; 81003; 81015; 85025; 86140; 87088